=== PATIENT | female | born 1935 | race Caucasian/White ===

== ENCOUNTER 2018-11-10 00:36 | Inpatient (IN) | payer MEDICARE, BC ==
[2018-11-10] MEDS ORDERED: hydrALAZINE 20 MG/ML VIAL ONE (01:19)
[2018-11-10] MEDS ORDERED: Acetaminophen 325 MG TAB ONE (01:19)
[2018-11-10] MEDS ORDERED: Ibuprofen 200 MG TAB ONE (01:19)
[2018-11-10 01:38] LABS: Hemoglobin 15.9 g/dL (12.0-16.0); Mean Corpuscular HGB CONC 32.9 g/dL (32.0-36.0); Mean Corpuscular Hemoglobin 29.7 pg (27.0-31.0); Mean Corpuscular Volume 90.2 fL (78.0-98.0); Mean Platelet Volume 8.3 fL (7.4-10.4); Platelet Count 245 thou/uL (130-400); RBC Distribution Width 11.8 % (11.5-14.5); Red Blood Cell (RBC) Count 5.35 mill/uL (4.20-5.40); White Blood Cell (WBC) Count 11.8 thou/uL (4.8-10.8)
[2018-11-10 01:54] LABS: Band 16 % (5-11); Lymphocytes 3 % (21-51); MDiff Complete? YES; Monocytes 6 % (0-10); Neutrophil 75 % (42-75); Platelet Morphology Comment Appears Adequate; RBC Morphology Normal
[2018-11-10 01:58] LABS: Bilirubin Negative (Negative); Blood, Urine Negative (Negative); Clarity CLEAR (Clear); Glucose, Urine (Dipstick) 250 mg/dL (Negative); Leukocyte Negative (Negative); Nitrite Negative (Negative); Protein, Urine (Dipstick) Negative (Neg-Trace); Specific Gravity, Urine 1.016 (1.002-1.036)
[2018-11-10 02:01] LABS: ALT (SGPT) 187 U/L (8-55); AST (SGOT) 218 U/L (5-34); Albumin 3.9 g/dL (3.4-4.8); Alkaline Phosphatase 189 U/L (40-150); Anion Gap 17 mmol/L (10-20); BUN (Urea Nitrogen) 14 mg/dL (9.8-20.1); Bilirubin, Total 0.9 mg/dL (0.2-1.2); CK (CPK) 53 U/L (29-168); Calc. Creatinine Clearance 0 mL/min (70-130); Calcium 9.6 mg/dL (7.8-10.44); Carbon Dioxide 19 mmol/L (23-31); Chloride 106 mmol/L (98-107); Estimated GFR-MDRD 51; Globulin 3.3 g/dL (2.4-3.5); Glucose 216 mg/dL (83-110); Lipase 32 U/L (8-78); Potassium 3.5 mmol/L (3.5-5.1); Protein, Total 7.2 g/dL (6.0-8.3); Sodium 138 mmol/L (136-145)
[2018-11-10 02:20] LABS: CKMB 1.2 ng/mL (0-6.6)
[2018-11-10] MEDS ORDERED: Aspirin Chewable 81 MG TAB ONE (02:29)
[2018-11-10] MEDS ORDERED: Sodium Chloride 0.9% 1,000 ML IV SCH (03:55)
[2018-11-10 05:42] LABS: Lactic Acid 2.2 mmol/L (0.5-2.2)
[2018-11-10] MEDS ORDERED: Sodium Chloride 0.65% Nasal 44 ML BOT EA NARE PRN (07:45)
[2018-11-10] MEDS ORDERED: Eucerin (Mineral Oil/Petrolatum,White) 30 gm Jar TOP PRN (07:45)
[2018-11-10] MEDS ORDERED: Bisacodyl 10 MG SUPP PR PRN (07:45)
[2018-11-10] MEDS ORDERED: Artificial Tears 18 DROP/0.9 ML EA EYE PRN (07:45)
[2018-11-10] MEDS ORDERED: Loratadine 10 MG TAB PO PRN (07:45)
[2018-11-10] MEDS ORDERED: Senokot S 8.6-50 MG TAB PO PRN (07:45)
[2018-11-10] MEDS ORDERED: Bisacodyl 5 MG TAB PO PRN (07:45)
[2018-11-10] MEDS ORDERED: Diabetic Tussin 200 MG/10 ML UDCUP PO PRN (07:45)
[2018-11-10] MEDS ORDERED: Cepastat Lozenges 1 LOZ PO PRN (07:45)
[2018-11-10] MEDS ORDERED: Acetaminophen 325 MG TAB PO PRN (07:45)
[2018-11-10] MEDS ORDERED: Calcium Carbonate 500 MG ChewTAB PO PRN (07:45)
[2018-11-10] MEDS ORDERED: Metoclopramide HCl 10 MG/2 ML VIAL IVP PRN (07:45)
[2018-11-10] MEDS ORDERED: Zolpidem Tartrate 5 MG TAB PO PRN (07:45)
--- NOTE | 2018-11-10 08:48 | RAD ---
AP CHEST: HISTORY: Fever. FINDINGS: Lungs appear of infiltrate. Vascular markings normal. Heart size upper normal. No evidence of effu kendall. IMPRESSION: No acute lung process. POS: [facility]
[2018-11-10] MEDS ORDERED: Famotidine 20 MG TAB PO SCH (09:00)
[2018-11-10] MEDS ORDERED: Aspirin 325 MG TAB PO SCH (09:00)
[2018-11-10 09:19] LABS: Troponin I 0.124 ng/mL (< 0.028)
[2018-11-10] MEDS ORDERED: Aspirin 325 MG TAB ONE (09:23)
[2018-11-10] MEDS ORDERED: Famotidine 20 MG TAB ONE (09:57)
--- NOTE | 2018-11-10 10:37 | HP ---
PRIMARY CARE PHYSICIAN: [facility]. REASON FOR ADMISSION: Sepsis. HISTORY OF PRESENT ILLNESS: An 82-year-old female, who has underlying history of hypertension and gastroesophageal reflux disease, who came to emergency room with complaint of high-grade fever with chills. The patient was having generalized body ache, headache. She was feeling fatigued. She was feeling very weak, and that is why, she decided to come to emergency room for evaluation. The patient had diarrhea only for 1 day on Tuesday. The patient denies any recent travel. She denies any sick exposure. She denies any rash. She denies any UTI symptoms. She denies any flu-like symptoms. She denies any upper respiratory infection. She denies any constipation, diarrhea, melena, or hematochezia. She denies any pleurisy or pleuritic chest pain or shortness of breath. She does report mild cough. When she arrived to the emergency room, she was having temperature of 101.5. Routine blood test showed leukocytosis with bandemia. She also had lactic acidosis and elevated troponin as well as abnormal LFT. She denies any anorexia. She denies any right upper quadrant pain. She denies any nausea or vomiting. In the emergency room, the patient has received levofloxacin and IV fluid, and subsequently, we decided to keep this patient in the hospital for further evaluation and treatment. PAST MEDICAL HISTORY: 1. Hypertension. 2. Gastroesophageal reflux disease. PAST SURGICAL HISTORY: Reviewed and negative. PAST PSYCHIATRIC HISTORY: Anxiety and depression. ALLERGIES: NO KNOWN DRUG ALLERGIES. CURRENT HOME MEDICATIONS: 1. Toprol-XL 150 mg daily. 2. Venlafaxine 75 mg twice daily. 3. Protonix 40 mg p.o. daily. 4. Isradipine 5 mg daily. 5. Bentyl 10 mg q.8 h. p.r.n. REVIEW OF SYSTEMS: CONSTITUTIONAL: Negative for weight loss or gain, ability to conduct usual activities. SKIN: Negative for rash, itching. EYES: Negative for double vision, pain. ENT/MOUTH: Negative for nose bleeding, neck stiffness, pain, tenderness. CARDIOVASCULAR: Negative for palpitations, dyspnea on exertion, orthopnea. RESPIRATORY: Negative for shortness of breath, wheezing, cough, hemoptysis, fever or night sweats. GASTROINTESTINAL: Negative for poor appetite, abdominal pain, heartburn, nausea, vomiting, constipation, or diarrhea. GENITOURINARY: Negative for urgency, frequency, dysuria, nocturia. MUSCULOSKELETAL: Negative for pain, swelling. NEUROLOGIC/PSYCHIATRIC: Negative for anxiety, depression. ALLERGY/IMMUNOLOGIC: Negative for skin rash, bleeding tendency. Please see my HPI for pertinent positives and negatives. All other review of systems reviewed and negative except as mentioned in HPI. FAMILY HISTORY: The patient lives alone at home. No history of coronary artery disease, stroke, or cancer. SOCIAL HISTORY: The patient lives at home alone. No history of smoking, alcohol, or other illicit drug abuse. EMERGENCY ROOM COURSE: The patient has received Levaquin 750 mg, IV fluid, and Tylenol 650 mg. PHYSICAL EXAMINATION: VITAL SIGNS: On arrival, blood pressure 195/91, pulse 84, respiratory rate 20, temperature 101.5, and saturation 95% on room air. Weight 81.7 kg. GENERAL: The patient is currently alert, awake, in no obvious acute distress. HEAD: Normocephalic and atraumatic. EYES: Pupils round and reactive to light. Extraocular muscles intact. ENT: Oropharynx within normal limits. Moist mucous membranes. No oral lesion. No pharyngeal erythema. No exudate. NECK: Supple. No JVD. No thyromegaly. No carotid bruit. No meningeal signs of irritation. LUNGS: Clear to auscultation. Coarse breath sounds noted, but no rales. No wheeze. CARDIAC: S1 and S2 appear regular. Systolic murmur noted parasternally. No gallop. No rub. ABDOMEN: Obesity present. Bowel sounds present. Nontender and nondistended. No organomegaly. No mass. No suprapubic tenderness. BACK: Unremarkable. No CVA tenderness. EXTREMITIES: Upper extremities; passive movement of all joints are normal. Lower extremities; no edema, good distal pulsation, no calf tenderness. SKIN: No skin rash. HEMATOLOGIC: No lymphadenopathy. PSYCHIATRIC: Normal affect. NEUROLOGIC: Nonfocal examination. SIGNIFICANT LABORATORY DATA: EKG showing normal sinus rhythm. Chest x-ray based on my review, no acute cardiopulmonary process. CBC: WBC 11.8, hemoglobin 15.9, bandemia 16%, and platelets 245. BMP: Sodium 138, potassium 3.5, chloride 106, carbon dioxide 19, anion gap 17, BUN 14, creatinine 1.04, glucose 216, and calcium 9.6. Lactic acid 4.2. LFT: AST 218, ALT 187, alkaline phosphatase 189, and albumin 3.9. CK 53, CK-MB 1.2, troponin 0.104, and BNP 86.9. Lipase 32. Repeat lactic acid 2.2. Urinalysis unremarkable. ASSESSMENT AND PLAN: 1. Sepsis with acute organ dysfunction, associated with lactic acidosis. Source of infection is unclear at this point, suspecting viral prodrome versus bacterial infection. Culture obtained in the emergency room. We will start empiric antibiotic therapy and follow up on culture result, and if the patient does not get fever in next 24 to 48 hours, then we will consider discharging her home on oral antibiotics. We will continue with IV fluid. 2. Lactic acidosis, likely related with sepsis. Repeat lactic acid level is normal. 3. Demand ischemia of myocardium, likely related with demand ischemia from high-grade fever. The patient does not have any chest pain. Her EKG is unremarkable. We will monitor her on telemetry floor and do serial cardiac enzyme as this patient has underlying deep murmur. We will obtain echocardiography to assess ejection fraction and other structural abnormality. 4. Abnormal liver function test. We will repeat hepatitis profile tomorrow and we will also repeat CMP tomorrow, most likely related with sepsis or it could be related with fatty liver. 5. Hyperglycemia. We will check hemoglobin A1c tomorrow, and depending upon that, we will decide about starting diabetes medication. 6. Hypertension. We will hold on blood pressure medication at this point because of sepsis. If blood pressure permits, then we will continue after verifying her home medication. 7. Gastroesophageal reflux disease. We will continue Protonix 40 mg p.o. daily. 8. Code status. The patient is full code. The patient does not have any surrogate decision maker. 9. Disposition plan, based on clinical course. 10. Deep venous thrombosis prophylaxis. Lovenox 40 mg subcutaneous daily. Plan of care discussed with the patient in detail. Job ID: [id number]
[2018-11-10 14:02] VITALS: BMI 29.9
[2018-11-10] MEDS: Aspirin 325 MG TAB PO SCH (14:47)
[2018-11-10] MEDS: Sodium Chloride 0.9% 1,000 ML IV SCH ×2 (14:47→17:26)
[2018-11-10] MEDS: cefTRIAXone\\ROCEPHIN 1 GM in Sodium Chloride 0.9% 100 ML IVPB SCH (14:47)
[2018-11-10] MEDS: Enoxaparin Sodium 40 MG/0.4 ML SYRINGE SC SCH (14:48)
[2018-11-10] MEDS: Saccharomyces boulardii 250 MG CAP PO SCH (14:48)
[2018-11-10] MEDS: hydrALAZINE 20 MG/ML VIAL SLOW IVP PRN (17:35)
[2018-11-10] MEDS: HYDROcodone/Acetaminophen 5/325 mg Tablet PO PRN (17:37)
[2018-11-11] MEDS: Sodium Chloride 0.9% 1,000 ML IV SCH (04:32)
[2018-11-11 05:49] LABS: #Eosinphils 0.2 thou/uL (0.0-0.7); #Lymphocytes 1.2 thou/uL (1.20-3.40); #Monocytes 0.8 thou/uL (0.11-0.59); %Basophils 0.2 % (0.0-1.0); %Eosinophils 2.4 % (0.0-10.0); %Lymphocytes 11.5 % (21.0-51.0); %Monocytes 7.6 % (0.0-10.0); %Neutrophils 78.2 % (42.0-75.0); Hemoglobin 14.6 g/dL (12.0-16.0); Mean Corpuscular HGB CONC 32.5 g/dL (32.0-36.0); Mean Corpuscular Hemoglobin 29.3 pg (27.0-31.0); Mean Corpuscular Volume 90.1 fL (78.0-98.0); Platelet Count 239 thou/uL (130-400); RBC Distribution Width 11.8 % (11.5-14.5); Red Blood Cell (RBC) Count 4.97 mill/uL (4.20-5.40); White Blood Cell (WBC) Count 10.2 thou/uL (4.8-10.8)
[2018-11-11 05:54] LABS: Hemoglobin A1c 5.7 % (4.0-6.0)
[2018-11-11 06:10] LABS: ALT (SGPT) 163 U/L (8-55); AST (SGOT) 91 U/L (5-34); Albumin 3.3 g/dL (3.4-4.8); Alkaline Phosphatase 155 U/L (40-150); Anion Gap 11 mmol/L (10-20); BUN (Urea Nitrogen) 9 mg/dL (9.8-20.1); Calc. Creatinine Clearance 66 mL/min (70-130); Calcium 8.9 mg/dL (7.8-10.44); Carbon Dioxide 21 mmol/L (23-31); Chloride 110 mmol/L (98-107); Estimated GFR-MDRD 63; Globulin 3.2 g/dL (2.4-3.5); Glucose 115 mg/dL (83-110); Potassium 3.6 mmol/L (3.5-5.1); Protein, Total 6.5 g/dL (6.0-8.3); Sodium 138 mmol/L (136-145)
[2018-11-11 06:30] LABS: HBCM Index 0.08 S/CO (0-0.79); HBSAg Index 0.39 S/CO (0-0.99); Hep A IgM AB Non-Reactive (NonReactive); Hep A IgM S/CO 0.32 S/CO (0-0.79); Hep B Surf Ag Non-Reactive S/CO (NonReactive); Hep C IgG Ab Non-Reactive (NonReactive); Hep C Index 0.12 S/CO (0-0.79); Hepatitis B Core IgM Abs Non-Reactive (NonReactive)
[2018-11-11] MEDS: Aspirin 325 MG TAB PO SCH (08:04)
[2018-11-11] MEDS: cefTRIAXone\\ROCEPHIN 1 GM in Sodium Chloride 0.9% 100 ML IVPB SCH (08:04)
[2018-11-11] MEDS: Enoxaparin Sodium 40 MG/0.4 ML SYRINGE SC SCH (08:05)
[2018-11-11] MEDS: Saccharomyces boulardii 250 MG CAP PO SCH (08:05)
[2018-11-11] MEDS: HYDROcodone/Acetaminophen 5/325 mg Tablet PO PRN ×2 (08:11→20:55)
--- NOTE | 2018-11-11 10:45 | PDOC.PN ---
- Subjective Encounter Start Date: 11/11/18 Encounter Start Time: 07:40 Patient seen and examined. No new complaints. No overnight events she feels better, she does not like duoneb, gets tachycardia - Objective Resuscitation Status - Order Detail: 11/10/18 07:42 Resuscitation Status Routine Resuscitation Status: FULL: Full Resuscitation MAR Reviewed: Yes Vital Signs & Weight: Vital Signs (12 hours) Temp Pulse Resp BP Pulse Ox 11/11/18 08:00 96 11/11/18 07:59 99.1 F 102 H 18 180/79 H 96 11/11/18 07:19 96 11/11/18 07:15 80 18 96 11/11/18 03:18 98.8 F 90 14 174/78 H 96 11/11/18 00:53 89 18 95 Weight Weight 179 lb 12.8 oz I&O: 11/10/18 11/11/18 11/12/18 06:59 06:59 06:59 Output Total 600 Balance -600 Result Diagrams: 11/11/18 05:38 11/11/18 05:38 EKG Reviewed by me: Yes (nsr) Phys Exam - Physical Examination Constitutional: NAD HEENT: PERRLA, moist MMs, sclera anicteric Neck: no JVD, supple Respiratory: no wheezing, no rales, no rhonchi Cardiovascular: RRR, no significant murmur, no rub Gastrointestinal: soft, non-tender, no distention, positive bowel sounds Musculoskeletal: no edema, pulses present Neurological: non-focal, normal sensation, moves all 4 limbs Lymphatic: no nodes Psychiatric: normal affect, A&O x 3 Skin: no rash, normal turgor Dx/Plan (1) UTI (urinary tract infection) Status: Acute (2) Abnormal LFTs Code(s): R94.5 - ABNORMAL RESULTS OF LIVER FUNCTION STUDIES Status: Acute (3) Demand ischemia Code(s): I24.8 - OTHER FORMS OF ACUTE ISCHEMIC HEART DISEASE Status: Acute (4) Lactic acidosis Code(s): E87.2 - ACIDOSIS Status: Acute (5) Sepsis with acute organ dysfunction Code(s): A41.9 - SEPSIS, UNSPECIFIED ORGANISM; R65.20 - SEVERE SEPSIS WITHOUT SEPTIC SHOCK Status: Acute (6) Anxiety and depression Code(s): F41.9 - ANXIETY DISORDER, UNSPECIFIED; F32.9 - MAJOR DEPRESSIVE DISORDER, SINGLE EPISODE, UNSPECIFIED Status: Chronic (7) GERD (gastroesophageal reflux disease) Code(s): K21.9 - GASTRO-ESOPHAGEAL REFLUX DISEASE WITHOUT ESOPHAGITIS Status: Chronic (8) Hypertension Code(s): I10 - ESSENTIAL (PRIMARY) HYPERTENSION Status: Chronic - Plan cont current plan of care, continue antibiotics * DC Levaquin * DC IVF * DC tele * DC duoneb * transfer to medical * ambulate as tolerated * continue rocephin * expecting discharge soon * medication reviewed as below * symptomatic treatment. Review of Systems - Review of Systems ENT: negative: Ear Pain, Ear Discharge, Nose Pain, Nose Discharge, Nose Congestion, Mouth Pain, Mouth Swelling, Throat Pain, Throat Swelling, Other Respiratory: negative: Cough, Dry, Shortness of Breath, Hemoptysis, SOB with Excertion, Pleuritic Pain, Sputum, Wheezing Cardiovascular: negative: chest pain, palpitations, orthopnea, paroxysmal nocturnal dyspnea, edema, light headedness, other Gastrointestinal: negative: Nausea, Vomiting, Abdominal Pain, Diarrhea, Constipation, Melena, Hematochezia, Other Genitourinary: negative: Dysuria, Frequency, Incontinence, Hematuria, Retention , Other Musculoskeletal: negative: Neck Pain, Shoulder Pain, Arm Pain, Back Pain, Hand Pain, Leg Pain, Foot Pain, Other Skin: negative: Rash, Lesions, Conner, Bruising, Other - Medications/Allergies Allergies/Adverse Reactions: Allergies Allergy/AdvReac Type Severity Reaction Status Date / Time No Known Drug Allergies Allergy Verified 11/10/18 16:28 Medications: Current Medications Acetaminophen (Tylenol) 650 mg PO Q4H PRN PRN Reason: Headache/Fever/Mild Pain (1-3) Hydrocodone Bitart/Acetaminophen ([place] 5/325) 1 tab PO Q4H PRN PRN Reason: Moderate Pain (4-6) Last Admin: 11/11/18 08:11 Dose: 1 tab Albuterol/Ipratropium (Duoneb) 3 ml NEB [id number] PRN PRN Reason: SOB &/or Wheezing Artificial Tears (Tears Naturale) 2 drop EA EYE PRN PRN PRN Reason: Dry Eyes Aspirin (Aspirin) 325 mg PO DAILY [facility] Last Admin: 11/11/18 08:04 Dose: 325 mg Bisacodyl (Dulcolax) 10 mg PO DAILYPRN PRN PRN Reason: Constipation Bisacodyl (Dulcolax) 10 mg [place] DAILYPRN PRN PRN Reason: Constipation Calcium Carbonate (Tums) 1,000 mg PO Q4H PRN PRN Reason: Heartburn or Indigestion Cholecalciferol (Vitamin D3) 1,000 units PO [facility] Enoxaparin Sodium (Lovenox) 40 mg SC 0900 [facility] Last Admin: 11/11/18 08:05 Dose: 40 mg Guaifenesin (Robitussin Sf) 200 mg PO Q4H PRN PRN Reason: Cough Hydralazine HCl (Apresoline) 10 mg SLOW IVP Q4H PRN PRN Reason: SBP > 180 and HR < 70 Last Admin: 11/10/18 17:35 Dose: 10 mg Ceftriaxone Sodium 1 gm/ (Sodium Chloride) 100 mls @ 200 mls/hr IVPB Q24HR [facility] Last Admin: 11/11/18 08:04 Dose: 100 mls Loratadine (Claritin) 10 mg PO DAILYPRN PRN PRN Reason: Sinus Symptoms Last Admin: 11/10/18 19:50 Dose: 10 mg Metoclopramide HCl (Reglan) 5 mg IVP Q4H PRN PRN Reason: Nausea Metoprolol Succinate (Toprol Xl) 100 mg PO DAILY [facility] Last Admin: 11/11/18 08:41 Dose: 100 mg Mineral Oil/White Petrolatum (Eucerin Cream) 0 gm TOP BIDPRN PRN PRN Reason: Dry Skin Pantoprazole Sodium (Protonix) 40 mg PO DAILY [facility] Last Admin: 11/11/18 08:04 Dose: 40 mg Saccharomyces Boulardii (Florastor) 250 mg PO DAILY [facility] Last Admin: 11/11/18 08:05 Dose: 250 mg Senna/Docusate Sodium (Senokot S) 2 tab PO BID PRN PRN Reason: Constipation Sodium Chloride ([place] Nasal [place] 0.65%) 0 ml EA NARE QIDPRN PRN PRN Reason: Nasal Congestion Last Admin: 11/10/18 20:03 Dose: 1 applic Sodium Chloride (Flush - Normal Saline) 10 ml IVF Q12HR [facility] Last Admin: 11/11/18 08:06 Dose: Not Given Sodium Chloride (Flush - Normal Saline) 10 ml IVF PRN PRN PRN Reason: Saline Flush Throat Lozenges (Cepastat Lozenges) 1 pedro PO Q2H PRN PRN Reason: Sore Throat Venlafaxine HCl (Effexor) 150 mg PO DAILY [facility] Last Admin: 11/11/18 08:41 Dose: 150 mg Zolpidem Tartrate (Ambien) 5 mg PO HSPRN PRN PRN Reason: Insomnia
[2018-11-11] MEDS: hydrALAZINE 20 MG/ML VIAL SLOW IVP PRN (20:57)
[2018-11-12 08:06] LABS: ALT (SGPT) 112 U/L (8-55); AST (SGOT) 41 U/L (5-34); Albumin 3.2 g/dL (3.4-4.8); Alkaline Phosphatase 143 U/L (40-150); Anion Gap 10 mmol/L (10-20); BUN (Urea Nitrogen) 13 mg/dL (9.8-20.1); Bilirubin, Total 0.4 mg/dL (0.2-1.2); Calc. Creatinine Clearance 58 mL/min (70-130); Calcium 9.5 mg/dL (7.8-10.44); Carbon Dioxide 26 mmol/L (23-31); Chloride 110 mmol/L (98-107); Estimated GFR-MDRD 53; Globulin 3.4 g/dL (2.4-3.5); Glucose 111 mg/dL (83-110); Potassium 4.1 mmol/L (3.5-5.1); Protein, Total 6.6 g/dL (6.0-8.3); Sodium 142 mmol/L (136-145)
[2018-11-12] MEDS: Enoxaparin Sodium 40 MG/0.4 ML SYRINGE SC SCH (09:09)
[2018-11-12] MEDS: Aspirin 325 MG TAB PO SCH (09:09)
[2018-11-12] MEDS: cefTRIAXone\\ROCEPHIN 1 GM in Sodium Chloride 0.9% 100 ML IVPB SCH (09:09)
[2018-11-12] MEDS: Saccharomyces boulardii 250 MG CAP PO SCH (10:30)
--- NOTE | 2018-11-12 11:52 | PDOC.PN ---
- Subjective Encounter Start Date: 11/12/18 Encounter Start Time: 08:15 Patient seen and examined. No new complaints. No overnight events overall feels better and improving - Objective Resuscitation Status - Order Detail: 11/10/18 07:42 Resuscitation Status Routine Resuscitation Status: FULL: Full Resuscitation MAR Reviewed: Yes Vital Signs & Weight: Vital Signs (12 hours) Temp Pulse Resp BP BP Pulse Ox 11/12/18 08:22 97.7 F 54 L 18 165/75 H 96 11/12/18 05:45 98.2 F 56 L 20 134/71 93 L 11/12/18 00:35 98.5 F 64 16 160/76 H 94 L Weight Weight 179 lb 12.8 oz I&O: 11/11/18 11/12/18 11/13/18 06:59 06:59 06:59 Intake Total 1680 Output Total 600 1100 Balance -600 580 Result Diagrams: 11/11/18 05:38 11/12/18 07:17 Phys Exam - Physical Examination Constitutional: NAD HEENT: PERRLA, moist MMs, sclera anicteric Neck: no JVD, supple Respiratory: no wheezing, no rales, no rhonchi Cardiovascular: RRR, no significant murmur, no rub Gastrointestinal: soft, non-tender, no distention, positive bowel sounds Musculoskeletal: no edema, pulses present Neurological: non-focal, normal sensation, moves all 4 limbs Lymphatic: no nodes Psychiatric: normal affect, A&O x 3 Skin: no rash, normal turgor Dx/Plan (1) UTI (urinary tract infection) Status: Acute (2) Abnormal LFTs Code(s): R94.5 - ABNORMAL RESULTS OF LIVER FUNCTION STUDIES Status: Acute (3) Demand ischemia Code(s): I24.8 - OTHER FORMS OF ACUTE ISCHEMIC HEART DISEASE Status: Acute (4) Lactic acidosis Code(s): E87.2 - ACIDOSIS Status: Acute (5) Sepsis with acute organ dysfunction Code(s): A41.9 - SEPSIS, UNSPECIFIED ORGANISM; R65.20 - SEVERE SEPSIS WITHOUT SEPTIC SHOCK Status: Acute (6) Anxiety and depression Code(s): F41.9 - ANXIETY DISORDER, UNSPECIFIED; F32.9 - MAJOR DEPRESSIVE DISORDER, SINGLE EPISODE, UNSPECIFIED Status: Chronic (7) GERD (gastroesophageal reflux disease) Code(s): K21.9 - GASTRO-ESOPHAGEAL REFLUX DISEASE WITHOUT ESOPHAGITIS Status: Chronic (8) Hypertension Code(s): I10 - ESSENTIAL (PRIMARY) HYPERTENSION Status: Chronic - Plan cont current plan of care, continue antibiotics * continue rocephin for now * on discharge will give omnicef * medication reviewed as below * symptomatic treatment. Review of Systems - Review of Systems ENT: negative: Ear Pain, Ear Discharge, Nose Pain, Nose Discharge, Nose Congestion, Mouth Pain, Mouth Swelling, Throat Pain, Throat Swelling, Other Respiratory: negative: Cough, Dry, Shortness of Breath, Hemoptysis, SOB with Excertion, Pleuritic Pain, Sputum, Wheezing Cardiovascular: negative: chest pain, palpitations, orthopnea, paroxysmal nocturnal dyspnea, edema, light headedness, other Gastrointestinal: negative: Nausea, Vomiting, Abdominal Pain, Diarrhea, Constipation, Melena, Hematochezia, Other Genitourinary: negative: Dysuria, Frequency, Incontinence, Hematuria, Retention , Other Musculoskeletal: negative: Neck Pain, Shoulder Pain, Arm Pain, Back Pain, Hand Pain, Leg Pain, Foot Pain, Other Skin: negative: Rash, Lesions, Conner, Bruising, Other - Medications/Allergies Allergies/Adverse Reactions: Allergies Allergy/AdvReac Type Severity Reaction Status Date / Time No Known Drug Allergies Allergy Verified 11/10/18 16:28 Medications: Current Medications Acetaminophen (Tylenol) 650 mg PO Q4H PRN PRN Reason: Headache/Fever/Mild Pain (1-3) Hydrocodone Bitart/Acetaminophen ([place] 5/325) 1 tab PO Q4H PRN PRN Reason: Moderate Pain (4-6) Last Admin: 11/11/18 20:55 Dose: 1 tab Albuterol/Ipratropium (Duoneb) 3 ml NEB [id number] PRN PRN Reason: SOB &/or Wheezing Artificial Tears (Tears Naturale) 2 drop EA EYE PRN PRN PRN Reason: Dry Eyes Aspirin (Aspirin) 325 mg PO DAILY [facility] Last Admin: 11/12/18 09:09 Dose: 325 mg Bisacodyl (Dulcolax) 10 mg PO DAILYPRN PRN PRN Reason: Constipation Bisacodyl (Dulcolax) 10 mg [place] DAILYPRN PRN PRN Reason: Constipation Calcium Carbonate (Tums) 1,000 mg PO Q4H PRN PRN Reason: Heartburn or Indigestion Cholecalciferol (Vitamin D3) 1,000 units PO HS [facility] Last Admin: 11/11/18 20:47 Dose: 1,000 units Enoxaparin Sodium (Lovenox) 40 mg SC 0900 [facility] Last Admin: 11/12/18 09:09 Dose: 40 mg Guaifenesin (Robitussin Sf) 200 mg PO Q4H PRN PRN Reason: Cough Hydralazine HCl (Apresoline) 10 mg SLOW IVP Q4H PRN PRN Reason: SBP > 180 and HR < 70 Last Admin: 11/11/18 20:57 Dose: 10 mg Ceftriaxone Sodium 1 gm/ (Sodium Chloride) 100 mls @ 200 mls/hr IVPB Q24HR [facility] Last Admin: 11/12/18 09:09 Dose: 100 mls Loratadine (Claritin) 10 mg PO DAILYPRN PRN PRN Reason: Sinus Symptoms Last Admin: 11/10/18 19:50 Dose: 10 mg Metoclopramide HCl (Reglan) 5 mg IVP Q4H PRN PRN Reason: Nausea Metoprolol Succinate (Toprol Xl) 100 mg PO DAILY [facility] Last Admin: 11/12/18 10:31 Dose: 100 mg Mineral Oil/White Petrolatum (Eucerin Cream) 0 gm TOP BIDPRN PRN PRN Reason: Dry Skin Pantoprazole Sodium (Protonix) 40 mg PO DAILY [facility] Last Admin: 11/12/18 09:09 Dose: 40 mg Saccharomyces Boulardii (Florastor) 250 mg PO DAILY [facility] Last Admin: 11/12/18 10:30 Dose: 250 mg Senna/Docusate Sodium (Senokot S) 2 tab PO BID PRN PRN Reason: Constipation Sodium Chloride ([place] Nasal [place] 0.65%) 0 ml EA NARE QIDPRN PRN PRN Reason: Nasal Congestion Last Admin: 11/10/18 20:03 Dose: 1 applic Sodium Chloride (Flush - Normal Saline) 10 ml IVF Q12HR [facility] Last Admin: 11/12/18 09:09 Dose: 10 ml Sodium Chloride (Flush - Normal Saline) 10 ml IVF PRN PRN PRN Reason: Saline Flush Throat Lozenges (Cepastat Lozenges) 1 pedro PO Q2H PRN PRN Reason: Sore Throat Venlafaxine HCl (Effexor) 150 mg PO DAILY [facility] Last Admin: 11/12/18 10:31 Dose: 150 mg Zolpidem Tartrate (Ambien) 5 mg PO HSPRN PRN PRN Reason: Insomnia
[2018-11-12] MEDS: hydrALAZINE 20 MG/ML VIAL SLOW IVP PRN (17:41)
[2018-11-13] MEDS: Enoxaparin Sodium 40 MG/0.4 ML SYRINGE SC SCH (09:52)
[2018-11-13] MEDS: Aspirin 325 MG TAB PO SCH (09:52)
[2018-11-13] MEDS: cefTRIAXone\\ROCEPHIN 1 GM in Sodium Chloride 0.9% 100 ML IVPB SCH (10:07)
[2018-11-13] MEDS: Saccharomyces boulardii 250 MG CAP PO SCH (10:32)
--- NOTE | 2018-11-13 11:27 | DIS ---
DATE OF ADMISSION: 11/10/2018 DATE OF DISCHARGE: 11/13/2018 PRIMARY CARE PHYSICIAN: [facility] Call admission. DISCHARGE DISPOSITION: Home with home health. PRIMARY DISCHARGE DIAGNOSES: 1. Sepsis with acute organ dysfunction. 2. Lactic acidosis. 3. Demand ischemia. 4. Abnormal LFT. 5. Urinary tract infection. SECONDARY DISCHARGE DIAGNOSES: Hypertension, gastroesophageal reflux disease, anxiety, and depression. PRIMARY PROCEDURE/OPERATION: None. RADIOLOGICAL INVESTIGATION: Chest x-ray normal. Echocardiography showed normal EF. SIGNIFICANT LABORATORY DATA: WBC 10.2, hemoglobin 14.6, and platelet 239. Sodium 142, potassium 4.1, BUN 13, creatinine 1.0, calcium 9.5, AST 41, ALT 112, alkaline phosphatase 143, and albumin 3.2. Troponin 0.124. Hepatitis profile negative. Urinalysis unremarkable. Urine culture grew E. coli. Blood culture negative. Influenza negative. DISCHARGE MEDICATION: 1. Omnicef 300 mg p.o. b.i.d. for 5 more days. 2. Florastor 250 mg p.o. daily for 5 days. 3. Aspirin 81 mg daily. 4. Vitamin D3 of 2000 units p.o. at bedtime. 5. Bentyl 10 mg p.r.n. basis. 6. Vascepa 2 tablets p.o. b.i.d. 7. Isradipine 5 mg p.o. at bedtime. 8. Toprol-XL 100 mg p.o. daily. 9. Protonix 40 mg p.o. at bedtime. 10. Effexor 150 mg p.o. daily. CONTRAINDICATION: None. CODE STATUS: Full code. INPATIENT AIRPORT BAGGAGE SCREENER: None. ALLERGIES: NO KNOWN DRUG ALLERGIES. DISCHARGE PLAN: Posthospital, the patient will follow up with primary care physician in 1 or 2 weeks. HOSPITAL COURSE: An 82-year-old female, who was admitted by me. Please see my HPI for further details. The patient was having generalized weakness. She was having sepsis. Initially, source of infection was unclear, but her urinalysis and urine culture grew E. coli. The patient also had a fever with chills and lactic acidosis, abnormal LFT on admission. We checked hepatitis profile that was normal. Her chest x-ray was normal. She had elevated troponin due to demand ischemia and we did echocardiography that was also normal. While in the hospital, we treated her with Rocephin with significant improvement. Upon discharge, we changed to Omnicef for few more days. The patient will continue all her previous medication while in hospital. She remained hemodynamically stable. Initially, we admitted her to telemetry floor, but subsequently we transferred her to medical floor. At medical floor, the patient is doing very well. She is doing well with therapy. She is requesting home health upon discharge and that is why with help of nurse outreach case manager, we are arranging home health upon discharge. The patient is seen and examined at bedside today. All review of systems reviewed with her negative. Her vitals are stable. Her physical examination has not changed. Overall, she is doing very well. She is okay to be discharged. All new medication prescription sent to her pharmacy. Job ID: [id number]
[2018-11-13 11:39] VITALS: BP 176/77; TEMP 97.6
== END 2018-11-13 12:40 | disposition home health service (06) | DRG 872 ==
LOC: ERS 00:36 → ERHOLD 02:34 → 2NO 14:23 → 3SE 11-11 12:06
PROVIDERS: ADMIT Internal Medicine; ATTEND Internal Medicine
DX: A41.51 Sepsis due to Escherichia coli [E. coli] (principal); E87.2 Acidosis; I24.8 Other forms of acute ischemic heart disease; N39.0 Urinary tract infection, site not specified; R79.89 Other specified abnormal findings of blood chemistry; R65.20 Severe sepsis without septic shock; I10 Essential (primary) hypertension; K21.9 Gastro-esophageal reflux disease without esophagitis; F41.9 Anxiety disorder, unspecified; F32.9 Major depressive disorder, single episode, unspecified; Z79.899 Other long term (current) drug therapy
CPT/HCPCS: 36415; 71045; 80053; 80074; 81003; 82550; 82553; 83036; 83605; 83690; 83880; 84484; 85025; 87040; 87077; 87086; 87186; 87804; 93005; 93306; 94640; A4353; J0360; J0696; J1650; J1956; J7050; J7620

== ENCOUNTER 2019-04-20 21:45 | Emergency (ER) | payer MEDICARE, BC ==
[2019-04-20 22:40] LABS: #Basophils 0.1 thou/uL (0.0-0.2); #Eosinphils 0.5 thou/uL (0.0-0.7); #Lymphocytes 2.6 thou/uL (1.20-3.40); #Monocytes 1.1 thou/uL (0.11-0.59); #Neutrophils 6.2 thou/uL (1.40-6.50); %Basophils 0.6 % (0.0-1.0); %Eosinophils 5.1 % (0.0-10.0); %Lymphocytes 24.9 % (21.0-51.0); %Monocytes 10.1 % (0.0-10.0); %Neutrophils 59.4 % (42.0-75.0); Mean Corpuscular HGB CONC 33.1 g/dL (32.0-36.0); Mean Corpuscular Hemoglobin 30.3 pg (27.0-31.0); Mean Corpuscular Volume 91.6 fL (78.0-98.0); Platelet Count 322 thou/uL (130-400); RBC Distribution Width 12.4 % (11.5-14.5); Red Blood Cell (RBC) Count 4.93 mill/uL (4.20-5.40); White Blood Cell (WBC) Count 10.4 thou/uL (4.8-10.8)
--- NOTE | 2019-04-20 23:04 | CT ---
Exam: Head CT without contrast HISTORY: Altered mental status. COMPARISON: none FINDINGS: Hemorrhage: No intraparenchymal hemorrhage or extra-axial hematoma. Brain parenchyma: Cortical uribe-white matter differentiation is preserved. No mass effect or midline shift. Basilar cisterns are patent.Minimal chronic small vessel ischemic changes of the periventricular white matter. Ventricular system: Ventricles and sulci are patent and symmetric. Calvarium: Intact. Note is made of hyperostosis frontalis interna. Sinuses and mastoid air cells: Adequate aeration. IMPRESSION: No acute intracranial process.
[2019-04-20 23:05] LABS: ALT (SGPT) 28 U/L (8-55); AST (SGOT) 28 U/L (5-34); Albumin 3.8 g/dL (3.4-4.8); Alkaline Phosphatase 102 U/L (40-150); Anion Gap 16 mmol/L (10-20); BUN (Urea Nitrogen) 13 mg/dL (9.8-20.1); Bilirubin, Total 0.3 mg/dL (0.2-1.2); CK (CPK) 262 U/L (29-168); Calc. Creatinine Clearance 0 mL/min (70-130); Calcium 8.7 mg/dL (7.8-10.44); Carbon Dioxide 15 mmol/L (23-31); Chloride 113 mmol/L (98-107); Estimated GFR-MDRD 46; Globulin 3.1 g/dL (2.4-3.5); Glucose 134 mg/dL (83-110); Potassium 4.4 mmol/L (3.5-5.1); Protein, Total 6.9 g/dL (6.0-8.3); Sodium 140 mmol/L (136-145)
[2019-04-20 23:40] LABS: Bacteria/HPF 1+ HPF (None Seen); Bilirubin Negative (Negative); Blood, Urine Negative (Negative); Clarity Clear (Clear); Glucose, Urine (Dipstick) Normal (Negative); Leukocyte 25 Leu/uL (Negative); Nitrite Negative (Negative); Protein, Urine (Dipstick) Negative (Neg-Trace); RBC/HPF 0-3 HPF (0-3); Squamous Epithelial 0-3 HPF (0-3); Urobilinogen Normal mg/dL (Less than 2); WBC/HPF 0-3 HPF (0-3)
== END 2019-04-21 00:42 | disposition home or self-care (01) ==
LOC: ERS 21:45
DX: G45.4 Transient global amnesia (principal); I10 Essential (primary) hypertension; K21.9 Gastro-esophageal reflux disease without esophagitis; F32.9 Major depressive disorder, single episode, unspecified; Z79.899 Other long term (current) drug therapy
CPT/HCPCS: 36415; 70450; 80053; 81003; 81015; 82550; 84484; 85025; 87040; 87086; 93005; 94760; 96360

== ENCOUNTER 2019-04-21 14:33 | Inpatient (IN) | payer MEDICARE, BC ==
[2019-04-21 15:30] LABS: #Eosinphils 0.5 thou/uL (0.0-0.7); #Lymphocytes 3.3 thou/uL (1.20-3.40); #Monocytes 0.7 thou/uL (0.11-0.59); %Basophils 0.4 % (0.0-1.0); %Eosinophils 5.2 % (0.0-10.0); %Lymphocytes 34.1 % (21.0-51.0); %Monocytes 7.5 % (0.0-10.0); %Neutrophils 52.8 % (42.0-75.0); Hemoglobin 15.2 g/dL (12.0-16.0); Mean Corpuscular HGB CONC 34.1 g/dL (32.0-36.0); Mean Corpuscular Hemoglobin 30.4 pg (27.0-31.0); Mean Corpuscular Volume 89.3 fL (78.0-98.0); Mean Platelet Volume 8.5 fL (7.4-10.4); Platelet Count 369 thou/uL (130-400); RBC Distribution Width 12.3 % (11.5-14.5); Red Blood Cell (RBC) Count 4.99 mill/uL (4.20-5.40); White Blood Cell (WBC) Count 9.5 thou/uL (4.8-10.8)
--- NOTE | 2019-04-21 15:36 | CT ---
CT brain noncontrast: DATE: 04/21/2019 Time: 3:23 PM HISTORY: 83-year-old female with acute stroke symptoms: Right-sided weakness, dysarthria, and confusion. Dr. Walter verbally gave this acute stroke protocol report to Dr. Young of the emergency Department at 3:31 PM on 04/21/2019 COMPARISON: 04/20/2019 FINDINGS: There is a new finding of a moderate to large region of cytotoxic edema involving the left occipital lobe and contiguously the posterior medial aspect of left temporal lobe (most of the left ASSEMBLY MACHINE OPERATOR territory). There is a small acute focus of cytotoxic edema, representing an acute lacunar infarction , of the left thalamus (thalamic branch territory of the left ASSEMBLY MACHINE OPERATOR). There is no evidence of acute intra-axial or extra-axial hemorrhage. No mass effect, midline shift, extra-axial fluid collection, o r obstructive hydrocephalus. No calvarial fracture. IMPRESSION: 1) moderate to large left occipital acute infarction involving the majority of the left posterior cer ebral artery territory. 2) acute lacunar infarction of left thalamus (branch territory of left posterior cerebral artery)
[2019-04-21 15:45] LABS: PTT 26.8 SEC (22.9-36.1); Prothrombin Time 13.4 SEC (12.0-14.7)
[2019-04-21 15:48] LABS: ALT (SGPT) 24 U/L (8-55); AST (SGOT) 19 U/L (5-34); Alkaline Phosphatase 101 U/L (40-150); Anion Gap 15 mmol/L (10-20); BUN (Urea Nitrogen) 11 mg/dL (9.8-20.1); Bilirubin, Total 0.4 mg/dL (0.2-1.2); CK (CPK) 163 U/L (29-168); Calc. Creatinine Clearance 0 mL/min (70-130); Calcium 9.2 mg/dL (7.8-10.44); Carbon Dioxide 21 mmol/L (23-31); Chloride 110 mmol/L (98-107); Estimated GFR-MDRD 51; Globulin 3.5 g/dL (2.4-3.5); Glucose 141 mg/dL (83-110); Potassium 3.7 mmol/L (3.5-5.1); Protein, Total 7.5 g/dL (6.0-8.3); Sodium 142 mmol/L (136-145)
[2019-04-21] MEDS ORDERED: Aspirin 325 MG TAB ONE (15:55)
[2019-04-21 16:10] LABS: CKMB 2.6 ng/mL (0-6.6)
[2019-04-21] MEDS ORDERED: hydrALAZINE 20 MG/ML VIAL ONE (16:28)
[2019-04-21 19:46] LABS: Troponin I Less than 0.010 ng/mL (< 0.028)
[2019-04-21] MEDS ORDERED: HYDROcodone/Acetaminophen 5/325 mg Tablet PO PRN (19:54)
[2019-04-21] MEDS ORDERED: Senokot S 8.6-50 MG TAB PO PRN (19:54)
[2019-04-21] MEDS ORDERED: Sodium Chloride 0.9% 1,000 ML IV SCH (20:00)
[2019-04-21 20:02] VITALS: BMI 30.1
[2019-04-21] MEDS: Famotidine 20 MG TAB PO SCH (20:23)
[2019-04-21 23:22] LABS: Bacteria/HPF 1+ HPF (None Seen); Bilirubin Negative (Negative); Blood, Urine Negative (Negative); Clarity Clear (Clear); Glucose, Urine (Dipstick) Normal (Negative); Leukocyte Negative Leu/uL (Negative); Nitrite Negative (Negative); Protein, Urine (Dipstick) Negative (Neg-Trace); RBC/HPF 0-3 HPF (0-3); Squamous Epithelial 0-3 HPF (0-3); Urobilinogen Normal mg/dL (Less than 2); WBC/HPF 0-3 HPF (0-3)
[2019-04-21 23:25] LABS: Urine Culture Reflex No No
--- NOTE | 2019-04-22 04:24 | HP ---
PRIMARY CARE PHYSICIAN: Dr. Quintana. CHIEF COMPLAINT: Right-sided weakness and confusion. HISTORY OF PRESENT ILLNESS: Ms. Robert is a very pleasant 83-year-old female who reported to the emergency room today for altered mental status and right-sided weakness. She reports that the right-sided arm weakness and tingling started yesterday. Family also reports that she had some slurred speech and appeared confused. She had recently been diagnosed with UTI on Tuesday and was started on Cipro and has had 3 doses per the family. Family also reports that she has had some intermittent diarrhea for the last 2 weeks, none today. The patient reports that she woke up very early this morning around 6 o'clock, which is very unusual for her. She reports that she typically sleeps at least 9 a.m. and sometimes noon as that she has difficulty sleeping and stays up later, so she sleeps in later, but this morning she got up at 6 and evidently she was slightly disoriented, some confusion, and rather than call her family, which she reports now would have been the right thing to do, she actually went up, left her house, when outside and was attempting to flag some people down for some assistance. The patient had a CT scan while in the emergency room, which showed a new finding of a [id number] region of cytotoxic edema involving the left occipital lobe and contiguously posterior medial aspect of the left temporal lobe, most of the left SOCIAL CONTACT WORKER territory, there is a small acute focus of cytotoxic edema representing an acute lacunar infarction of the left thalamus. There is no evidence of acute intra-axial or extra-axial hemorrhage. There is no mass effect or midline shift. On exam, the patient continues to have some right-sided weakness. Strength, right arm is 4/5, left arm is 5/5. Same with lower extremities, strength is 4/5 on the right side and 5/5 on the left. She does not have any drift. However, her peripheral vision on her right side is absent. Of note, the patient was seen in the emergency room earlier on Tuesday. She was seen to have a facial droop on the right side, partial hemangioma. She was offered opportunity for admission for further workup. The patient declined, stated that she really wanted to go home and that she would follow up with her PCP. Reports that she does already had an appointment scheduled with her speech therapy assistant and GI doctors in the next several weeks. She did have a CT scan of her brain on Tuesday at 2159, which showed no intracranial process, so the findings today are new. The patient agreed to admission and will be admitted to the stroke unit for further management. PAST MEDICAL HISTORY: Hypertension and GERD. PAST SURGICAL HISTORY: She has had back surgery. PSYCHIATRIC HISTORY: None. SOCIAL HISTORY: Denies any alcohol or drug use. Has no smoking history. She does live at home by herself. KNOWN ALLERGIES: None. CURRENT MEDICATIONS: 1. Cipro 500 mg p.o. twice a day. 2. Isradipine 5 mg p.o. b.i.d. 3. Venlafaxine 75 mg once a day, Effexor. REVIEW OF SYSTEMS: The patient reports right-sided weakness. She also reports intermittent diarrhea, none today. Denies any abdominal pain. Denies any chest pain, shortness of breath. Does report vision changes to her right peripheral vision. All other systems were reviewed and are negative unless mentioned in the HPI. PHYSICAL EXAMINATION: VITAL SIGNS: Blood pressure 187/78, pulse is 82, respirations are 19, pO2 sats are 97% on room air. CONSTITUTIONAL: The patient appears nontoxic. She is having expressive aphasia, but she is alert and oriented to person, place, and time. HEENT: Head is atraumatic and normocephalic. Eyes; eyelids are normal to inspection. Pupils are equally round and reactive to light. Peripheral vision on the right is absent, hemangioma. ENT; mouth exam is normal. Mucous membranes were moist. NECK: Normal range of motion. Trachea is midline. RESPIRATORY: Breath sounds are clear. No findings of respiratory distress. CARDIOVASCULAR: Regular heart rate and rhythm. Heart sounds are normal. ABDOMEN: Nontender. Bowel sounds are heard. BACK: Normal inspection. Normal range of motion. EXTREMITIES: Upper extremities; normal range of motion. Sensation intact. Radial pulses are equal bilaterally. She has 4/5 strength on the right upper extremity, 5/5 motor strength on the left. Lower extremities; inspection is normal. Motor strength, 5/5 on the left and 4/5 on the right. Sensation is intact. Pedal pulses are equal bilaterally. NEUROLOGIC: Speech appears to have some expressive aphasia. Minimal drift on the right upper and lower extremities. Some hemangioma on the right. PERTINENT LABORATORY DATA: White blood cell count 9.5, hemoglobin 15.2, hematocrit 44.5, and platelet count is 369. PT is 13.4, INR is 1, APTT is 26.8. Sodium is 142, potassium 3.7, chloride is 110, carbon dioxide is 21, gap is 15, BUN is 11, creatinine is 1.03, GFR is 51, glucose is 141, calcium is 9.2. Liver enzymes are unremarkable. Troponin x1 is 0.030, subsequent 2 troponins are undetectable. Urine, negative except for 1+ bacteria. ASSESSMENT AND PLAN: 1. Acute cerebrovascular accident. We will order an MRI, echocardiogram, carotid Dopplers, stroke team evaluation, lipids, and TSH in the morning. We will ask Case Management to initiate inpatient rehab evaluation. Family states that they may need some help getting her back to baseline and she lives at home by herself. 2. Hyperlipidemia. We will continue the Vascepa. The patient reports being treated for a urinary tract infection that was diagnosed on Tuesday. We will continue the Cipro. She is getting 500 mg p.o. b.i.d. and has 5 doses left. We will continue this. 3. Code status was discussed with the patient and family. Her sons are at the bedside, states that she potentially could be DNR, but is not sure. Family stated they wanted to discuss it before they decided on a code status, and one of the sons wanted to look for paperwork that his mother had signed and had given him in the past. Extensive discussion about the different code status is what they mean and discussion about ensuring that the patient and family were all in agreement as to code status, and if they could let us know with her first opportunity, we will update this in the chart. 4. Gastrointestinal and deep venous thrombosis prophylaxis will be started. 5. We will ask Neurology to consult for acute cerebrovascular accident. 6. Hospital course is dependent on clinical findings. Job ID: [id number]
[2019-04-22 05:39] LABS: #Basophils 0.1 thou/uL (0.0-0.2); #Eosinphils 0.6 thou/uL (0.0-0.7); #Lymphocytes 3.5 thou/uL (1.20-3.40); #Monocytes 0.8 thou/uL (0.11-0.59); #Neutrophils 3.8 thou/uL (1.40-6.50); %Basophils 0.7 % (0.0-1.0); %Eosinophils 6.9 % (0.0-10.0); %Lymphocytes 40.2 % (21.0-51.0); %Monocytes 9.4 % (0.0-10.0); %Neutrophils 42.8 % (42.0-75.0); Hemoglobin 14.2 g/dL (12.0-16.0); Mean Corpuscular HGB CONC 33.1 g/dL (32.0-36.0); Mean Corpuscular Hemoglobin 29.7 pg (27.0-31.0); Mean Corpuscular Volume 89.8 fL (78.0-98.0); Platelet Count 336 thou/uL (130-400); RBC Distribution Width 12.3 % (11.5-14.5); Red Blood Cell (RBC) Count 4.76 mill/uL (4.20-5.40); White Blood Cell (WBC) Count 8.8 thou/uL (4.8-10.8)
[2019-04-22 06:02] LABS: ALT (SGPT) 19 U/L (8-55); AST (SGOT) 15 U/L (5-34); Albumin 3.4 g/dL (3.4-4.8); Alkaline Phosphatase 85 U/L (40-150); Anion Gap 12 mmol/L (10-20); BUN (Urea Nitrogen) 14 mg/dL (9.8-20.1); Bilirubin, Total 0.3 mg/dL (0.2-1.2); Calc. Creatinine Clearance 57 mL/min (70-130); Calcium 8.7 mg/dL (7.8-10.44); Carbon Dioxide 22 mmol/L (23-31); Cardiac Risk 3.8 (Less than 4.5); Chloride 110 mmol/L (98-107); Cholesterol 166 mg/dl (< 200 Desired); Estimated GFR-MDRD 53; Glucose 110 mg/dL (83-110); HDL Cholesterol 44 mg/dL (>60 Neg Risk); LDL Cholesterol, Calculated 88 mg/dL; Potassium 3.6 mmol/L (3.5-5.1); Protein, Total 6.4 g/dL (6.0-8.3); Sodium 140 mmol/L (136-145); Triglycerides 170 mg/dL (Less than 150)
[2019-04-22] MEDS ORDERED: ISRADIPINE 5 MG PO SCH (09:00)
[2019-04-22] MEDS ORDERED: Ciprofloxacin 500 MG TAB PO SCH (09:00)
--- NOTE | 2019-04-22 09:16 | ULT ---
Ultrasound Doppler duplex carotid: DATE: 04/22/2019 HISTORY: Cerebrovascular accident in 83-year-old female Acute stroke. TECHNIQUE: Grayscale, color-flow, and spectral analysis, of major arteries of neck. FINDINGS: Mild calcified atheromatous plaque at origin of right internal carotid. Mild to moderate calcified at heromatous plaque at contralateral left carotid bulb at origin of left internal carotid. Highest peak systolic velocities in centimeters per second in the internal carotids: R ICA: 52 L ICA: 45 ICA/CCA ratios: Right: 0.9 Left: 0.6 Week pulse Doppler and color Doppler signal in the right vertebral artery, probably antegrade. Stronger Doppler signal in left vertebral artery, definitely antegrade. IMPRESSION: 1. Predominantly mild atherosclerosis at origins of bilateral internal carotid arteries, left greater than right. 2. No evidence of hemodynamically significant stenosis in the cervical internal carotid arteries. 3. Weak flow signal in the right vertebral artery.
[2019-04-22] MEDS: Aspirin 325 mg Enteric Coated Tablet PO SCH (09:34)
[2019-04-22] MEDS: Enoxaparin Sodium 40 MG/0.4 ML SYRINGE SC SCH (09:34)
[2019-04-22] MEDS: Famotidine 20 MG TAB PO SCH ×2 (09:34→21:46)
[2019-04-22] MEDS ORDERED: Ondansetron PF 4 MG/2 ML Vial IVP PRN (11:05)
--- NOTE | 2019-04-22 11:15 | CON ---
DATE OF CONSULTATION: 04/22/2019 CHIEF COMPLAINT: Acute stroke. HISTORY OF PRESENT ILLNESS: The patient reports she was not feeling well for the last few weeks due to upset stomach, and she went to see her doctor and she also talked to Dr. Chavez, who wanted to do further testing. He felt that her right hand is weak and not working well. She also reported tingling in the right arm. She is able to walk okay, and these symptoms are worsened and there is no improvement. PREVIOUS MEDICAL HISTORY: Positive for hypertension, gastroesophageal reflux disease. PAST SURGICAL HISTORY: Lower back surgery in the 1970s. SOCIAL HISTORY: Nonsmoker. Drinks wine occasionally. She is very independent and lives at home by herself. RECENT HOSPITALIZATION: She was hospitalized in October for high fever. FAMILY HISTORY: Negative for any acute strokes. REVIEW OF SYSTEMS: PULMONARY: Negative for shortness of breath and cough. GI: Negative for any diarrhea, vomiting, or nausea. GENITOURINARY: Negative for bladder problems. NEUROLOGICAL: Positive for weakness of the right hand and lack of coordination of the right hand. OPHTHALMOLOGIC: Negative. ENT negative. DERMATOLOGIC: Negative for any rash. LABORATORY WORKUP: White count 8.8, hemoglobin 14.2, hematocrit 42.7, platelets 336. Chemistry; sodium 140, potassium 3.6, chloride 110, BUN 14, creatinine 1.01. Triglycerides 170, cholesterol 166, LDL 88, HDL 44. TSH 1.1. IMAGING STUDIES: Her CT of the brain performed yesterday showed moderate to large left occipital lobe acute infarct involving the majority of left posterior cerebral artery territory, and she also completed a carotid Doppler study, which was negative for any major vaso-occlusive disease. She does have mild atherosclerosis at the origins of bilateral ICAs, left greater than the right. MRI is pending. PHYSICAL EXAMINATION: VITAL SIGNS: Temperature 98.3, pulse 68, respiratory rate 16, O2 saturations 95, blood pressure 190/84. GENERAL APPEARANCE: Well-built, well-nourished lady. CHEST: Clear vesicular breathing. CARDIOVASCULAR: S1 and S2 heard. No murmurs. ABDOMEN: Soft. NEUROLOGICAL: Higher intellectual functions, normal orientation to time, place, and person. Appropriate conversation. Cranial nerves; visual christopher, she has right homonymous hemianopsia with deficits of the left nasal field and right temporal field. Normal extraocular movements. Pupils are 2 mm and reactive to light bilaterally. Sensory exam of the face showed decreased sensation of the right face. Tongue midline. No atrophy noted. Normal elevation of palate. Normal hearing. Motor exam; bulk normal, tone normal. Strength 5/5 in both upper and lower extremities in iliopsoas, hamstrings, quadriceps, ankle dorsiflexion, plantar flexion, deltoid, biceps, triceps, wrist extension and flexion, finger extension and flexion. Deep tendon reflexes are 1+ in lower extremities, 2+ in upper extremities. She has mild cerebellar dysfunction in the right upper extremity. Otherwise, cerebellar exam is also normal. IMPRESSION: The patient with the left occipital lobe infarct. She is currently having deficits mainly in the right visual field with right homonymous hemianopsia with left nasal field cut and right temporal field cut. At this time, clinical examination is most consistent with a left occipital lobe infarct. RECOMMENDATIONS: Please complete CT angiogram and echocardiogram and full workup. Agree with aspirin and statin for stroke prophylaxis, and Neurology will follow up as needed. Job ID: [id number]
--- NOTE | 2019-04-22 11:35 | PDOC.PN ---
- Subjective Encounter Start Date: 04/22/19 Encounter Start Time: 11:33 Says she does not feel well at all, but can't be more specific. Has had some vision changes especially in her right eye, but that seems to be improving. Also has some nausea. - Objective Vital Signs & Weight: Vital Signs (12 hours) Temp Pulse Resp BP Pulse Ox 04/22/19 11:32 97.4 F L 60 18 190/81 H 97 04/22/19 07:38 98.3 F 58 L 16 190/84 H 95 04/22/19 04:00 97.6 F 58 L 16 180/83 H 97 04/22/19 00:00 97.9 F 63 16 173/77 H 95 Weight Weight 181 lb 1.6 oz I&O: 04/21/19 04/22/19 04/23/19 06:59 06:59 06:59 Intake Total 1153 240 Output Total 700 Balance 453 240 Result Diagrams: 04/22/19 05:07 04/22/19 05:07 Additional Labs: Accuchecks 04/21/19 14:50 POC Glucose 136 H Phys Exam - Physical Examination Constitutional: NAD Lying in bed with wet cloth over her eyes. Respiratory: no wheezing, no rales, no rhonchi Cardiovascular: RRR, no rub II/ M Gastrointestinal: soft, non-tender, no distention, positive bowel sounds Musculoskeletal: no edema 4/5 strength RU and RL extrems. Normal interaction/cognition. Normal speech. Deviation from normal: Appears to not feel well, but otherwise normal. Dx/Plan (1) CVA (cerebral vascular accident) Code(s): I63.9 - CEREBRAL INFARCTION, UNSPECIFIED Status: Acute Comment: Left occipital, visual field deficits. (2) UTI (urinary tract infection) Status: Acute (3) GERD (gastroesophageal reflux disease) Code(s): K21.9 - GASTRO-ESOPHAGEAL REFLUX DISEASE WITHOUT ESOPHAGITIS Status: Chronic (4) Hypertension Code(s): I10 - ESSENTIAL (PRIMARY) HYPERTENSION Status: Chronic (5) Nausea Code(s): R11.0 - NAUSEA Status: Acute - Plan * Neuro consult appreciated. * Echo pending. Did not tolerate the MRI. * Will consider attempting again when she is less nauseated. * Carotids ok. * CTA pending. * Aspirin, but hold on statin until we can clarify from Dr. Chavez's office why she is on Vascepa and that she does not have an intolerance to statins. * Stroke team. * Permissive hypertension. * Zofran ordered. * D/C Cipro in light of interaction with Zofran. * Rocephin. * Follow up UCx.
--- NOTE | 2019-04-22 12:23 | CT ---
CTA ANGIO HEAD WITH AND WITHOUT CONTRAST CT BRAIN WITHOUT CONTRAST CT ANGIOGRAM NECK WITH CONTRAST: HISTORY: Left RETAIL CUSTOMER SERVICE SPECIALIST infarction. Comparison: CT prior day and CT April 20, 2019. Findings: Continued evolution left RETAIL CUSTOMER SERVICE SPECIALIST territory infarction. Left thalamic infarct is similar. No midline shift. No significant mass effect. Calvarium is intact. Vertebral arteries are patent. The basilar artery is patent. Complete occlusion left P2 posterior cer ebral artery with reconstitution of P4. Anterior cerebral arteries are patent. Middle cerebral arteries are patent. Occlusion occurs for a length of approximately 2.5 cm. No aneurysm formation. IMPRESSION: 1. Long segment occlusion left P2 segment with reconstitution at P4 corresponding to the CT findings. 2. Remainder the [place] is patent. 3. No hemorrhagic conversion of the left thalamic or RETAIL CUSTOMER SERVICE SPECIALIST territory infarction.. Transcribed Date/Time: 04/22/2019 12:53 PM
--- NOTE | 2019-04-22 12:31 | CT ---
CT ANGIOGRAM NECK WITH CONTRAST: DATE: 04/22/2019 HISTORY: 83-year-old female status post CVA, acute left posterior cerebral artery territory infarction. TECHNIQUE: After IV contrast injection, arterial bolus chasing technique scan performed from 2.5 cm inferior to kash to skull base Coronal and sagittal 3-D MIP reconstructions. FINDINGS: Aortic arch: No stenosis, aneurysm, or dissection. Brachiocephalic: No stenosis. Right subclavian: Normal. Left subclavian: No significant stenosis. Mild calcified plaque at origin. Right common carotid: Normal. Left common carotid: Normal. Right internal carotid: Moderate calcified atheromatous plaque at origin at carotid bulb causing appr oximately 50% luminal stenosis. The rest of the cervical are ICA is normal. Left internal carotid: Calcified plaque at origin of left internal carotid at carotid bulb causing mi ld, probably less than 20% stenosis. The distal cervical left internal carotid has mild noncalcified irregularity of eckert, and mild diffu se narrowing, but no focal high-grade stenosis. Right vertebral: Normal. Left vertebral: Dominant. Normal. Several right thyroid nodules. Distention of the supraglottic laryngeal and oropharyngeal airway. Cause is not apparent. Trachea is patent and clear. No laryngeal mass identified.. IMPRESSION: 1) atheromatous plaque at origin of right internal carotid causing moderate stenosis. 2) no other hemodynamically significant stenosis identified in the major arteries of the neck. 3) distention of the supraglottic and oropharyngeal airways. Cause not apparent.
[2019-04-22] MEDS ORDERED: ISOVUE-370 76%-LOCM 1 ML ONE (12:37)
[2019-04-22] MEDS: cefTRIAXone\\ROCEPHIN 1 GM in Sodium Chloride 0.9% 100 ML IVPB SCH (13:08)
[2019-04-23] MEDS ORDERED: hydrALAZINE 20 MG/ML VIAL SLOW IVP PRN (01:38)
[2019-04-23 04:43] LABS: #Basophils 0.1 thou/uL (0.0-0.2); #Eosinphils 0.7 thou/uL (0.0-0.7); #Lymphocytes 3.3 thou/uL (1.20-3.40); #Monocytes 0.7 thou/uL (0.11-0.59); #Neutrophils 4.6 thou/uL (1.40-6.50); %Basophils 1.1 % (0.0-1.0); %Eosinophils 7.4 % (0.0-10.0); %Lymphocytes 34.7 % (21.0-51.0); %Monocytes 7.7 % (0.0-10.0); %Neutrophils 49.1 % (42.0-75.0); Hemoglobin 14.1 g/dL (12.0-16.0); Mean Corpuscular HGB CONC 34.9 g/dL (32.0-36.0); Mean Corpuscular Volume 88.8 fL (78.0-98.0); Mean Platelet Volume 8.2 fL (7.4-10.4); Platelet Count 321 thou/uL (130-400); Red Blood Cell (RBC) Count 4.54 mill/uL (4.20-5.40); White Blood Cell (WBC) Count 9.4 thou/uL (4.8-10.8)
[2019-04-23 05:01] LABS: ALT (SGPT) 18 U/L (8-55); AST (SGOT) 16 U/L (5-34); Albumin 3.7 g/dL (3.4-4.8); Alkaline Phosphatase 85 U/L (40-150); Anion Gap 13 mmol/L (10-20); BUN (Urea Nitrogen) 13 mg/dL (9.8-20.1); Bilirubin, Total 0.5 mg/dL (0.2-1.2); Calc. Creatinine Clearance 67 mL/min (70-130); Calcium 9.1 mg/dL (7.8-10.44); Carbon Dioxide 22 mmol/L (23-31); Chloride 107 mmol/L (98-107); Estimated GFR-MDRD 63; Glucose 103 mg/dL (83-110); Potassium 3.6 mmol/L (3.5-5.1); Protein, Total 6.7 g/dL (6.0-8.3); Sodium 138 mmol/L (136-145)
[2019-04-23] MEDS: cloNIDine 0.1 MG TAB PO PRN (07:46)
[2019-04-23] MEDS: Enoxaparin Sodium 40 MG/0.4 ML SYRINGE SC SCH (09:59)
[2019-04-23] MEDS: Famotidine 20 MG TAB PO SCH (09:59)
[2019-04-23] MEDS: Aspirin 325 mg Enteric Coated Tablet PO SCH (09:59)
[2019-04-23] MEDS: cefTRIAXone\\ROCEPHIN 1 GM in Sodium Chloride 0.9% 100 ML IVPB SCH (12:24)
[2019-04-23] MEDS ORDERED: Senokot 8.6 MG TAB PO PRN (13:33)
[2019-04-23] MEDS ORDERED: ALPRAZolam 0.25 MG TAB PO PRN (13:33)
[2019-04-23] MEDS ORDERED: Saccharomyces boulardii 250 MG CAP PO SCH (13:45)
--- NOTE | 2019-04-23 15:29 | PRG ---
DATE OF SERVICE: 04/23/2019 SUBJECTIVE: An 83-year-old female with hypertension and GERD, presented to the hospital with right-sided weakness along with confusion. Please note that the patient had discontinued taking most of her medications including aspirin at home. She is currently admitted to the Stroke Unit for possible CVA. She was evaluated by Neurology and has been started on aspirin and statins. A CT angiogram of the head and neck were done that showed occlusion of the left P2 segment of the posterior cerebral artery with reconstitution of P4. Anterior cerebral artery and middle cerebral artery were patent. The occlusion occurs for a length of approximately 2.5 cm. The patient denies any new deficits at this time. The right lower extremity strength has significantly improved. She continues to have mild weakness in the right upper extremity. She continues to have blurriness of vision on the right. No chest pain or palpitations reported. REVIEW OF SYSTEMS: All other review of systems were reviewed and were found negative. OBJECTIVE: VITAL SIGNS: Temperature 98.4, pulse rate of 74, respirations of 16, and blood pressure of 192/88 with O2 saturation 95% on room air. GENERAL: An 83-year-old female, in no apparent distress. NECK: Supple. No JVD. No carotid bruit. LUNGS: Clear to auscultation bilaterally. No wheezing, rales, or rhonchi. HEART: S1 and S2 present. Regular rate and rhythm. No rubs or gallops appreciated. ABDOMEN: Soft and nontender. Bowel sounds present. EXTREMITIES: No edema or calf tenderness. NEUROLOGY: There is 4/5 weakness in the right upper extremity. There is diminished sensation on the right. The patient continues to have the same visual deficits. PSYCHIATRY: Normal affect. The patient is alert, awake, and oriented x3. DIAGNOSTIC DATA: Telemetry monitoring by my review showed sinus rhythm. CT angiogram of the head and neck as discussed above. Echocardiogram showed diastolic dysfunction. Fasting lipid profile showed triglyceride 170, cholesterol 166, and LDL 88. TSH was 1.19. Maximum troponin was 0.030. IMPRESSION: 1. Left occipital lobe infarction with right-sided weakness and right homonymous hemianopia. 2. Occlusion of the left P2 segment of posterior cerebral artery with reconstitution of P4. 3. Moderate right internal carotid artery stenosis with mild stenosis of the left internal carotid artery. 4. Hypertension with hypertensive heart disease. 5. Chronic diastolic heart failure. 6. Depression, mild, stable. 7. Anxiety. 8. Recent urinary tract infection, on ciprofloxacin. 9. Hyperlipidemia. 10. Elevated troponin secondary to acute cerebrovascular accident/type 2 myocardial infarction. 11. Obesity with BMI of 30.1. 12. Chronic kidney disease, stage 2. PLAN: MRI of the brain is pending at this time. The patient has significant claustrophobia. Benzodiazepines were offered, however, the patient declined. We will continue IV Rocephin for recent UTI. We will continue aspirin. We will resume Vascepa. We will add statins. Lovenox for DVT prophylaxis. Stroke Team. Please note that the patient does not like taking most of the medications. Antihypertensives were offered, however, the patient declined. We will add low-dose amlodipine due to elevated blood pressure. Plan of care was discussed with the patient in detail, she stated understanding. Job ID: [id number]
--- NOTE | 2019-04-23 19:50 | MRI ---
MRI BRAIN WITHOUT CONTRAST: HISTORY: Right-sided weakness. CORRELATION: CTA head from the previous day. CT brain from 04/21/2019. FINDINGS: There is a large area of restricted diffusion in the left SUPERVISOR WHIPPED TOPPING territory, involving the occipital lobe and the left thalamus. No hemorrhage is seen. No midline shift otherwise abnormal extraaxial fluid collections are noted. The ventricular size is appropriate, and the basilar cisterns are patent. IMPRESSION: Acute large left posterior cerebral artery infarction. POS: [id number]
[2019-04-23] MEDS ORDERED: Atorvastatin Calcium 10 MG TAB PO SCH (21:00)
[2019-04-23] MEDS ORDERED: Amlodipine 5 MG TAB PO SCH (21:00)
[2019-04-23] MEDS: Propranolol 10 MG TAB PO SCH (22:43)
[2019-04-24] MEDS: cloNIDine 0.1 MG TAB PO PRN (05:26)
[2019-04-24] MEDS: Aspirin 325 mg Enteric Coated Tablet PO SCH (08:59)
[2019-04-24] MEDS ORDERED: Saccharomyces boulardii 250 MG CAP PO SCH (09:00)
[2019-04-24] MEDS ORDERED: Amlodipine 5 MG TAB PO SCH (09:00)
[2019-04-24] MEDS: Propranolol 10 MG TAB PO SCH ×2 (09:01→14:31)
[2019-04-24] MEDS: Enoxaparin Sodium 40 MG/0.4 ML SYRINGE SC SCH (09:04)
[2019-04-24] MEDS: cefTRIAXone\\ROCEPHIN 1 GM in Sodium Chloride 0.9% 100 ML IVPB SCH (11:21)
[2019-04-24 15:22] VITALS: BP 134/68; TEMP 98.4
--- NOTE | 2019-04-24 20:41 | DIS ---
DATE OF ADMISSION: 04/21/2019 DATE OF DISCHARGE: 04/24/2019 DISCHARGE DISPOSITION: To inpatient rehabilitation. The patient was seen and examined on the day of discharge. She denies any new complaints. No new focal deficits. INPATIENT CONSULTANTS: Neurology, Dr. Chung. FOLLOWUP: The patient was advised to follow up with the primary care physician, Dr. Sean Quintana. The patient was advised to follow up with Neurology, Dr. Brower in 2 weeks. ALLERGIES: NO KNOWN DRUG ALLERGIES. DISCHARGE MEDICATION: 1. Aspirin 325 mg daily. 2. Lipitor 10 mg at bedtime. 3. Clonidine as needed. 4. Senokot S as needed. 5. Omeprazole 20 mg daily as needed. 6. Isradipine 5 mg b.i.d. 7. Vascepa 1 g daily. 8. Vitamin D3 at 2000 units at bedtime. BRIEF HOSPITAL COURSE: The patient is an 83-year-old female with hypertension, who presented to the hospital on April 21, 2019, with right-sided weakness and confusion. Workup was consistent with acute large left posterior cerebral artery infarction. She has been started on aspirin by Neurology. Please note that the patient was not on any antiplatelet agent on admission. She was evaluated by Neurology. Echocardiogram showed left ventricular ejection fraction of 55% to 60% with diastolic dysfunction, mild mitral and aortic regurgitation with mild aortic stenosis. A CT angiogram of the head and neck showed long segment occlusion of the left P2 segment with reconstitution at P4. There was atheromatous plaque at the origin of the right internal carotid artery causing moderate stenosis. There was no focal high-grade stenosis noted. She has been cleared by Neurology for discharge. FINAL DIAGNOSES: 1. Acute large left posterior cerebral artery infarction causing right-sided hemiparesis and right homonymous hemianopsia. 2. Occlusion of the left P2 segment with reconstitution at P4. 3. Moderate stenosis in the right internal carotid artery. Primary care physician advised to follow. 4. Hypertension with hypertensive heart disease. 5. Chronic diastolic heart failure. 6. Depression, mild, stable. 7. Anxiety. 8. Recent urinary tract infection, completed antibiotic. 9. Hyperlipidemia. 10. Elevated troponin secondary to acute cerebrovascular accident/type 2 myocardial infarction. 11. Obesity with a BMI of 30.1. 12. Chronic kidney disease, stage 2. The patient was extensively counseled to follow up with Neurology as an outpatient. Total time coordinating was 34 minutes. Job ID: [id number]
== END 2019-04-24 16:50 | DRG 64 ==
LOC: ERS 14:33 → 2SE 15:47
PROVIDERS: ADMIT Internal Medicine; ATTEND Internal Medicine
DX: I63.542 Cerebral infarction due to unspecified occlusion or stenosis of left cerebellar artery (principal); I21.A1 Myocardial infarction type 2; G81.91 Hemiplegia, unspecified affecting right dominant side; N39.0 Urinary tract infection, site not specified; I13.0 Hypertensive heart and chronic kidney disease with heart failure and stage 1 through stage 4 chronic kidney disease, or unspecified chronic kidney disease; I50.32 Chronic diastolic (congestive) heart failure; E78.5 Hyperlipidemia, unspecified; K21.9 Gastro-esophageal reflux disease without esophagitis; R29.701 NIHSS score 1; H53.461 Homonymous bilateral field defects, right side; N18.2 Chronic kidney disease, stage 2 (mild); F41.9 Anxiety disorder, unspecified; F32.9 Major depressive disorder, single episode, unspecified; I65.21 Occlusion and stenosis of right carotid artery; E66.9 Obesity, unspecified; Z79.899 Other long term (current) drug therapy; Z68.30 Body mass index [BMI] 30.0-30.9, adult
CPT/HCPCS: 36415; 36416; 70450; 70496; 70498; 70551; 80053; 80061; 81001; 81003; 81015; 82550; 82553; 84443; 84484; 85025; 85610; 85730; 86850; 86900; 86901; 87040; 87086; 93005; 93306; 93880; 94760; 96360; 96374; J0360; J0696; J1650; J2405; J3490; Q9966

== ENCOUNTER 2019-06-03 15:27 | Observation (INO) | payer MEDICARE, BC ==
--- NOTE | 2019-06-03 17:23 | RAD ---
RADIOGRAPH CHEST 1 VIEW: DATE: 06/03/2019 HISTORY: 83-year-old female with chest pain FINDINGS: The thoracic aorta is tortuous and ectatic. There is no evidence of airspace density, cardiomegaly, p ulmonary edema, or pneumothorax. The lateral costophrenic angles are not effaced. IMPRESSION: 1) No acute cardiopulmonary findings. 2) ectasia of thoracic aorta.
[2019-06-03 17:42] LABS: Bilirubin Negative (Negative); Blood, Urine Negative (Negative); Clarity Clear (Clear); Glucose, Urine (Dipstick) Normal (Negative); Leukocyte 250 Leu/uL (Negative); Nitrite Negative (Negative); Protein, Urine (Dipstick) Negative (Neg-Trace); RBC/HPF 0-3 HPF (0-3); Squamous Epithelial 0-3 HPF (0-3); Urobilinogen Normal mg/dL (Less than 2)
[2019-06-03 17:43] LABS: Bacteria/HPF 1+ HPF (None Seen)
[2019-06-03 17:46] LABS: #Eosinphils 0.5 thou/uL (0.0-0.7); #Lymphocytes 2.7 thou/uL (1.20-3.40); #Neutrophils 7.6 thou/uL (1.40-6.50); %Basophils 0.4 % (0.0-1.0); %Eosinophils 4.5 % (0.0-10.0); %Lymphocytes 22.5 % (21.0-51.0); %Monocytes 8.6 % (0.0-10.0); Hemoglobin 16.3 g/dL (12.0-16.0); Mean Corpuscular HGB CONC 34.4 g/dL (32.0-36.0); Mean Corpuscular Volume 87.2 fL (78.0-98.0); Mean Platelet Volume 7.6 fL (7.4-10.4); Platelet Count 353 thou/uL (130-400); RBC Distribution Width 11.8 % (11.5-14.5); Red Blood Cell (RBC) Count 5.44 mill/uL (4.20-5.40); White Blood Cell (WBC) Count 11.8 thou/uL (4.8-10.8)
[2019-06-03 17:52] LABS: INR-International Normal Ratio 0.9; PTT 25.4 SEC (22.9-36.1); Prothrombin Time 12.4 SEC (12.0-14.7)
[2019-06-03 18:08] LABS: ALT (SGPT) 18 U/L (8-55); AST (SGOT) 17 U/L (5-34); Albumin 4.4 g/dL (3.4-4.8); Alkaline Phosphatase 124 U/L (40-150); Anion Gap 16 mmol/L (10-20); BUN (Urea Nitrogen) 18 mg/dL (9.8-20.1); Bilirubin, Total 0.2 mg/dL (0.2-1.2); CK (CPK) 71 U/L (29-168); Calc. Creatinine Clearance 0 mL/min (70-130); Calcium 9.9 mg/dL (7.8-10.44); Carbon Dioxide 25 mmol/L (23-31); Chloride 104 mmol/L (98-107); Estimated GFR-MDRD 51; Globulin 3.4 g/dL (2.4-3.5); Glucose 106 mg/dL (83-110); Potassium 4.5 mmol/L (3.5-5.1); Protein, Total 7.8 g/dL (6.0-8.3); Sodium 140 mmol/L (136-145)
--- NOTE | 2019-06-03 18:37 | CT ---
CT BRAIN WITHOUT CONTRAST: Date: 06/03/19 HISTORY: Right-sided arm numbness and vision changes. COMPARISON: 04/27/19. FINDINGS: An old large left CROSS ROLLER infarction is again seen. An old lacunar infarct is seen in the left thalamus. No evidence of acute infarct, hemorrhage, midline shift, or abnormal extra-axial fluid collections ar e seen. The ventricular size is appropriate and the basilar cisterns are patent. The bony calvarium i s intact. The visualized paranasal sinuses and mastoid air cells are well aerated. IMPRESSION: No CT evidence of acute intracranial process. POS: MZA
[2019-06-03] MEDS ORDERED: Ondansetron PF 4 MG/2 ML Vial IVP PRN (22:32)
[2019-06-03] MEDS ORDERED: Sodium Chloride 0.9% 1,000 ML IV SCH (22:32)
[2019-06-03] MEDS ORDERED: Ondansetron ODT 4 MG TAB SL PRN (22:32)
[2019-06-03] MEDS ORDERED: Acetaminophen 325 MG TAB PO PRN (22:32)
[2019-06-03] MEDS ORDERED: HYDROcodone/Acetaminophen 5/325 mg Tablet PO PRN ×2 (22:32)
[2019-06-04] MEDS ORDERED: Labetalol HCl 100 MG/20 ML VIAL SLOW IVP PRN (00:31)
[2019-06-04] MEDS ORDERED: hydrALAZINE 20 MG/ML VIAL SLOW IVP PRN (00:31)
[2019-06-04] MEDS ORDERED: Aspirin 325 MG TAB PO SCH (00:45)
[2019-06-04 00:48] VITALS: BMI 29.0
[2019-06-04] MEDS ORDERED: cefTRIAXone\\ROCEPHIN 1 GM in Sodium Chloride 0.9% 100 ML IVPB SCH (02:00)
--- NOTE | 2019-06-04 03:01 | HP ---
CHIEF COMPLAINT: Right arm numbness and tingling. 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 The patient has actually been doing quite well up until Tuesday of this week. The patient went to inpatient rehab briefly after her discharge from this facility and was there for 1 week. She gained all of her strength back in her right upper extremity, and has been continuing to work with outpatient physical therapy at her house. She has been able to complete all of her exercises without issue. Several days ago, the patient stated that she started to feel generally unwell. She cannot provide me any other specifics other than to say she did not feel like doing what she had normally been able to do. She denies any dysuria, cough, cold or flu symptoms. No fever or chills. Today, when at lunch with her sisters, she started noticing some tingling and numbness in her right upper extremity. The patient stated that she did not feel as if she should stay at her house alone, and her sisters urged her to come to the emergency department for further workup and treatment. On arrival, her CT scan was negative for any acute intracranial abnormality. At the time of my interview, her paresthesia has resolved. Blood work was significant for a white blood cell count of 11.8, and urinalysis revealed 1+ bacteria, white blood cell and also leukocyte esterase. REVIEW OF SYSTEMS: A 12-point review of systems performed and is negative except that stated above. PAST MEDICAL HISTORY: Hypertension, hyperlipidemia, hypertensive heart disease/chronic diastolic heart failure, mild aortic stenosis, stage 2 chronic kidney disease, gastroesophageal reflux disease, recent CVA as mentioned involving the left posterior cerebral artery which cause right-sided hemiparesis. PAST SURGICAL HISTORY: Hysterectomy and 1 previous back surgery. PSYCHIATRIC HISTORY: Mild anxiety and depression. SOCIAL HISTORY: The patient continues to live independently in [place]. She has a sister who lives close by. She also has a son and his family who live close by. She currently has home health and outpatient physical therapy. She is able to complete her ADLs independently. No smoking history. She denies any alcohol or illicit drug use. ALLERGIES: NO KNOWN DRUG ALLERGIES. HOME MEDICATIONS: 1. Aspirin 325 mg daily. 2. Lipitor 10 mg p.o. at bedtime. 3. Clonidine 0.1 p.r.n. elevated blood pressure. 4. Senokot as needed. 5. Omeprazole 20 mg daily. 6. Isradipine 5 mg p.o. b.i.d. 7. Vascepa 1 g daily. 8. Vitamin D3, 2000 international units daily. PHYSICAL EXAMINATION: VITAL SIGNS: Blood pressure 136/85, pulse 78, respirations 17 and O2 saturation is 98% on room air. GENERAL: The patient is alert, awake, and oriented, resting comfortably in bed, in no acute distress. HEENT: Head is atraumatic and normocephalic. Mucous membranes are moist. NECK: Trachea is midline. No JVD. No carotid bruits. CV: S1 and S2. Regular rate and rhythm. Grade 2/6 aortic stenosis murmur. LUNGS: Regular respiratory rate and pattern. Clear to auscultation bilaterally. ABDOMEN: Soft. Positive bowel sounds. Nontender. EXTREMITIES: No edema. SKIN: Warm and dry. No rashes. NEUROLOGIC: The patient has some right peripheral vision loss, which has been stable from her previous stroke. On my exam, she has equal strength in her upper and lower extremities bilaterally. LABORATORY DATA: White blood cell count 11.8, hemoglobin 16.3, hematocrit 47.5, and platelet count is 353. PT is 12.4, INR is 0.9. Sodium 140, potassium 4.5, chloride 104, BUN 18, creatinine 1.04, AST 17, ALT 18, alkaline phosphatase 124. Troponin negative. Urinalysis positive for leukocyte esterase, wbc and 1+ bacteria. ASSESSMENT: 1. Right arm paresthesia and blurry vision/transient ischemic attack, in the setting of recent CVA in April, (left posterior cerebral artery infarction). 2. Probable urinary tract infection. 3. Mild aortic stenosis. 4. Chronic diastolic heart failure, no acute exacerbation. 5. Hypertension. 6. Hyperlipidemia. 7. History of chronic kidney disease stage 2 with normal creatinine today. 8. Moderate, nonocclusive right internal carotid artery stenosis. PLAN: We will continue the patient's aspirin and statin, and obtain MRI of the brain to assess for any further insult. We will consult Neurology given her convincing symptoms of TIA in the setting of recent stroke. The patient has an elevated white count and has had some generalized weakness, and I will treat empirically for UTI given her positive findings and UA. Culture is pending. We will continue her other home medications once they are reconciled. Physical Therapy consult as well. Further recommendations based on hospital course and findings of noninvasive testing. Job ID: [id number]
[2019-06-04 05:21] LABS: Cardiac Risk 3.2 (Less than 4.5)
[2019-06-04] MEDS ORDERED: Acetaminophen 325 MG TAB PO PRN (08:31)
[2019-06-04] MEDS ORDERED: Lorazepam 2 MG/ML VIAL SLOW IVP SCH (08:45)
[2019-06-04] MEDS ORDERED: Enoxaparin Sodium 40 MG/0.4 ML SYRINGE SC SCH (09:00)
[2019-06-04] MEDS ORDERED: Aspirin 325 mg Enteric Coated Tablet PO SCH (09:00)
[2019-06-04] MEDS ORDERED: Amlodipine 5 MG TAB PO SCH (09:00)
--- NOTE | 2019-06-04 10:24 | MRI ---
Exam: Brain MRI without contrast HISTORY: Stroke. COMPARISON: 04/23/2019 FINDINGS: Calvarial marrow signal intensity: Appropriate T1 signal Gradient echo sequence: No hemorrhage Brain parenchyma: Findings compatible with a chronic infarct involving the left occipital lobe. There is evidence of malacic and gliotic change, along with laminar necrosis. Remainder of the cerebrum demonstrates preservation of cortical uribe-white matter differentiation. Restricted diffusion: Absent restricted diffusion. No acute infarct. Central arterial flow is maintai cristian. White matter signal intensities: T2, FLAIR white matter hyperintensities due to chronic small vessel ischemic changes Sinuses: Adequate aeration of the paranasal sinuses and mastoid air cells. IMPRESSION: 1. Chronic infarct involving the left occipital lobe. There is associated malacic and gliotic change. There is laminar necrosis. 2. No evidence of an acute infarct.
[2019-06-04 15:45] VITALS: BP 134/65; TEMP 98
[2019-06-04] MEDS ORDERED: Atorvastatin Calcium 10 MG TAB PO SCH (21:00)
--- NOTE | 2019-06-05 08:56 | CON ---
DATE OF CONSULTATION: 06/04/2019 CONSULTING PHYSICIAN: Hospitalist Service. IMPRESSION: Probable mild cervical radiculopathy. PLAN: 1. Prednisone 20 mg per day for 10 days. 2. Office followup. HISTORY OF PRESENT ILLNESS: Ms. Moore is an 83-year-old woman, who presented with complaints of some numbness in her hand and tingling down the right arm. She had a feeling of pressure on the right side of the chest and describes it as heavy. She denies any neck pain. Her symptoms have persisted. Her MRI of the brain was unremarkable. She has had recent carotid ultrasound that was clear. Echocardiogram showed a normal ejection fraction of 55% to 60%. She had a CT scan also, which is normal. MRI showed an old left occipital lobe infarct. PAST MEDICAL HISTORY: Hypertension, occipital lobe stroke. ALLERGIES: NONE. SOCIAL HISTORY: No tobacco. FAMILY HISTORY: Noncontributory. REVIEW OF SYSTEMS: Ten system review of systems is otherwise negative. PHYSICAL EXAMINATION: GENERAL: She is a well-nourished elderly lady, in no acute distress. VITAL SIGNS: Have been stable. She is afebrile. EKG shows sinus rhythm. NECK: Supple. EXTREMITIES: No cyanosis or edema. NEUROLOGIC: She is alert and cooperative. Her speech is fluent and clear. Cranial nerves are intact. Motor exam showed good strength in both upper extremities. Sensation is subjectively decreased in the fingertips of the right hand. She could sit at the bedside without any problems. She has normal gait. No abnormal movements are present. SUMMARY: This is an elderly lady, who presented with some right-sided symptoms which do not appear central, it looks that they maybe possibly related to a cervical radiculopathy. I would be happy to follow up with her as an outpatient. Job ID: [id number]
== END 2019-06-04 19:05 | disposition home or self-care (01) ==
LOC: ERS 15:27 → 2SE 18:51
PROVIDERS: ADMIT Internal Medicine; ATTEND Internal Medicine
DX: I69.351 Hemiplegia and hemiparesis following cerebral infarction affecting right dominant side (principal); I13.0 Hypertensive heart and chronic kidney disease with heart failure and stage 1 through stage 4 chronic kidney disease, or unspecified chronic kidney disease; N18.2 Chronic kidney disease, stage 2 (mild); I50.32 Chronic diastolic (congestive) heart failure; I10 Essential (primary) hypertension; I65.21 Occlusion and stenosis of right carotid artery; I35.0 Nonrheumatic aortic (valve) stenosis; K21.9 Gastro-esophageal reflux disease without esophagitis; F41.8 Other specified anxiety disorders; F32.9 Major depressive disorder, single episode, unspecified; R07.89 Other chest pain; Z79.82 Long term (current) use of aspirin; Z79.899 Other long term (current) drug therapy
CPT/HCPCS: 70450; 70551; 71045; 80053; 80061; 82550; 84484; 85025; 85610; 85730; 87086; 96361; 96365; 96375; 97139 ×2; 99285; G0378 ×3; 36415; 81003; 81015; J0696; J1650; J2060; J3490

== ENCOUNTER 2019-07-17 20:25 | Observation (INO) | payer MEDICARE, BC ==
[~2019-07-17 20:25] MED LIST: ISOVUE-370 76%-LOCM 1 ML ONE
--- NOTE | 2019-07-17 20:40 | CT ---
CT BRAIN NONCONTRAST: DATE: 07/17/2019 HISTORY: 83-year-old female with headache, right-sided numbness, and dysarthria. Acute stroke symptoms. Dr. Walter verbally gave this level 1 stroke alert protocol report to Dr. Cronin of the emergency Departm ent at 8:37 PM on 07/17/2019 FINDINGS: There is no evidence of acute intra-axial or extra-axial hemorrhage. There is no midline shift or any other mass effect. There is no extra-axial fluid collection. There is no evidence of obstructive hydrocephalus. Calvarium is intact. There is a moderate to large contiguous region of encephalomalaci a and gliosis in the left occipital lobe extending into the posterior medial temporal lobe. There is no interval change overall since 06/03/2019. IMPRESSION: 1. No acute intracranial findings. 2. Moderate to large old infarction in the left posterior cerebral artery territory.
[2019-07-17 20:51] LABS: #Basophils 0.1 thou/uL (0.0-0.2); #Eosinphils 0.6 thou/uL (0.0-0.7); #Lymphocytes 3.6 thou/uL (1.20-3.40); #Monocytes 0.9 thou/uL (0.11-0.59); #Neutrophils 4.5 thou/uL (1.40-6.50); %Basophils 0.9 % (0.0-1.0); %Eosinophils 5.8 % (0.0-10.0); %Lymphocytes 37.1 % (21.0-51.0); %Monocytes 9.7 % (0.0-10.0); %Neutrophils 46.4 % (42.0-75.0); Hemoglobin 15.7 g/dL (12.0-16.0); Mean Corpuscular HGB CONC 34.7 g/dL (32.0-36.0); Mean Corpuscular Hemoglobin 30.5 pg (27.0-31.0); Mean Corpuscular Volume 87.8 fL (78.0-98.0); Mean Platelet Volume 7.5 fL (7.4-10.4); Platelet Count 303 thou/uL (130-400); RBC Distribution Width 12.1 % (11.5-14.5); Red Blood Cell (RBC) Count 5.16 mill/uL (4.20-5.40); White Blood Cell (WBC) Count 9.6 thou/uL (4.8-10.8)
[2019-07-17 20:58] LABS: INR-International Normal Ratio 0.9; Prothrombin Time 12.6 SEC (12.0-14.7)
[2019-07-17 21:00] LABS: PTT 21.6 SEC (22.9-36.1)
--- NOTE | 2019-07-17 21:10 | CT ---
CT ANGIOGRAM NECK WITH CONTRAST CT ANGIOGRAM BRAIN WITH CONTRAST: DATE: 07/17/2019 HISTORY: 83-year-old female with acute stroke symptoms: Dysarthria and right-sided numbness. This Level One stroke alert protocol report was called to Dr. Cronin at 9:07 PM on 07/17/2019 TECHNIQUE: After IV contrast injection, arterial bolus chasing technique scan performed from AP window to vertex of head. Coronal and sagittal 3-D MIP reconstructions. FINDINGS: Aortic arch: No dissection or aneurysm. Brachiocephalic: No high-grade stenosis. Right subclavian: No high-grade stenosis. Left subclavian: Mild stenosis with calcified plaque at origin. No high-grade stenosis. Right common carotid: No high-grade stenosis. Left common carotid: No high-grade stenosis. Right vertebral: No high-grade stenosis in cervical or intracranial portions. Left vertebral: There is a transversely oriented thin web across the proximal aspect of the vessel ve ry close to the origin. It is uncertain what degree of stenosis this causes, probably not severe. No other significant stenosis. Mild stenosis at origin. Left side is dominant. Right internal carotid: Calcified plaque at origin causing approximately 40-50% stenosis. No other si gnificant stenosis. Left internal carotid: Calcified plaque at origin causing very mild stenosis. No stenosis in the rest of the vessel. No evidence of high-grade stenosis in bilateral carotid siphons. Bilateral MCAs: No high-grade stenosis or thrombus in M1 segments.. Bilateral ACAs: No occlusion or high-grade stenosis in A1 and A2 segments. Basilar: Normal Bilateral transcribing operators supervisor: No occlusion or high-grade stenosis proximally. IMPRESSION: 1. No evidence of M1 segment middle cerebral artery thrombus. 2. Mild to moderate stenosis at origin of right internal carotid artery by calcified plaque. 3. No other high-grade stenosis identified.
[2019-07-17 21:11] LABS: ALT (SGPT) 14 U/L (8-55); AST (SGOT) 15 U/L (5-34); Albumin 3.9 g/dL (3.4-4.8); Alkaline Phosphatase 99 U/L (40-110); Anion Gap 15 mmol/L (10-20); BUN (Urea Nitrogen) 18 mg/dL (9.8-20.1); Bilirubin, Total 0.2 mg/dL (0.2-1.2); CK (CPK) 83 U/L (29-168); Calc. Creatinine Clearance 0 mL/min (70-130); Calcium 9.5 mg/dL (7.8-10.44); Carbon Dioxide 21 mmol/L (23-31); Chloride 104 mmol/L (98-107); Estimated GFR-MDRD 48; Globulin 3.4 g/dL (2.4-3.5); Glucose 119 mg/dL (83-110); Lipase 54 U/L (8-78); Potassium 4.1 mmol/L (3.5-5.1); Protein, Total 7.3 g/dL (6.0-8.3); Sodium 136 mmol/L (136-145)
[2019-07-17] MEDS ORDERED: Aspirin Chewable 81 MG TAB ONE (21:22)
--- NOTE | 2019-07-17 21:59 | RAD ---
RADIOGRAPH CHEST 1 VIEW: DATE: 07/17/2019 HISTORY: 83-year-old female with altered mental status. FINDINGS: The thoracic aorta is tortuous and ectatic. There is no evidence of airspace density, pulmonary edema , cardiomegaly, or pneumothorax. The lateral costophrenic angles are not effaced. IMPRESSION: 1) No acute pulmonary findings. 2) ectasia of thoracic aorta.
[2019-07-17 23:21] VITALS: BMI 29.9
[2019-07-17] MEDS ORDERED: Ondansetron PF 4 MG/2 ML Vial IVP PRN (23:23)
[2019-07-17] MEDS ORDERED: Ondansetron ODT 4 MG TAB SL PRN (23:23)
[2019-07-18] MEDS ORDERED: Aspirin 325 MG TAB PO SCH (08:00)
[2019-07-18] MEDS ORDERED: ISRADIPINE 5 MG PO SCH (09:00)
--- NOTE | 2019-07-18 09:29 | MRI ---
MRI Brain WO Con: 07/18/2019 7:34 AM CLINICAL HISTORY: TIA. COMPARISON: CT head, previous FINDINGS: Extra axial spaces: Normal in size and morphology for the patient's age. Acute infarction: None. Ventricular system: Normal in size and morphology for the patient's age. Basal cisterns: Normal. Cerebral parenchyma: Microvascular ischemic changes. There is encephalomalacia of the left occipital lobe. Midline shift: None. Cerebellum: Normal. Brainstem: Normal. Paranasal sinuses:Clear IMPRESSION: No acute territorial infarction. Chronic microvascular ischemic disease, and superimposed left occipital encephalomalacia.
[2019-07-18] MEDS: Sodium Chloride 0.9% 1,000 ML IV SCH ×2 (11:00→22:03)
[2019-07-18] MEDS ORDERED: Lisinopril 5 MG TAB PO SCH (11:30)
--- NOTE | 2019-07-18 12:04 | MRI ---
MRI CERVICAL SPINE WITHOUT CONTRAST: INDICATIONS: Cervical radiculopathy. FINDINGS: Motion artifact degrades all sequences. There are moderate degenerative changes at all levels. Degenerative disk changes are noted with loss of disk space, posterior spondylosis and anterior osteophytes at all levels. Vertebral body height is maintained and vertebral body signal is normally maintained. At C2-C3 no significant abnormality. At C3-C4 posterior disk bulge and spondylosis is prominent. These changes impinge on and compress the cord. Evidence of bilateral foraminal stenosis from facet and uncinate hypertrophy. At C4-C5 posterior disk bulge and spondylosis abuts the anterior cord. Evidence of bilateral foramina l narrowing due to facet and uncinate hypertrophy. At C5-C6 posterior disk bulge and spondylosis impinges on and mildly compresses the anterior cord. Ev idence of bilateral foraminal narrowing due to uncinate hypertrophy. At C6-C7 disk bulge and spondylosis abut the anterior cord. Small disk osteophyte complex paracentral ly on the right indents the anterior cord anteriorly on the right. Foraminal narrowing due to facet a nd uncinate hypertrophy. At C7-T1 no significant disk bulge or spondylosis. Foramina appear patent. IMPRESSION: Degenerative disk changes at all levels. Posterior disk and spondylitic changes impinge on the cord a t C3-C4, C4-C5, C5-C6 and C6-C7, as described above. There is foraminal narrowing at all levels due t o facet and uncinate hypertrophy. CT may be of benefit to further evaluate. CT could better define the osseous spondylosis and hypertro phy and reduce motion artifact. POS: OFF
[2019-07-18] MEDS: ALPRAZolam 0.25 MG TAB PO PRN (17:39)
[2019-07-19] MEDS: ISRADIPINE 5 MG PO SCH (01:59)
--- NOTE | 2019-07-19 07:25 | HP ---
PRIMARY CARE PHYSICIAN: Dr. Sean Quintana. CHIEF COMPLAINT: Right arm numbness and tingling. HISTORY OF PRESENT ILLNESS: Ms. Moore is an 83-year-old female, with a past medical history of hypertension, hyperlipidemia, recent CVA in April 2019, who had presented to the ED late last night for what she thought was worsening numbness and tingling down her right arm, she was recently admitted in the hospital back in May of 2019 for the same symptoms. She was seen by Dr. Brower and was later diagnosed with a pinched nerve and sent home with oral prednisone, which she had not tolerated well. She states that she had seen Dr. Brower as outpatient, in which had also stated that her symptoms were from a pinched nerve in her neck. PT and OT were set up along with home care, which she states during that time over the following 20 days, she states that the symptoms gradually improved and is being active. However, over the last week and a half, she has not been as active. Therefore, the symptoms had returned. She had denied any fever, chills, any headache, blurred vision or dizziness, any chest pain, palpitations, shortness of breath, abdominal pain, nausea, or vomiting. During her initial workup in the ED, a CT of brain was obtained and showed no acute intracranial findings; however, moderate to large old infarction to the left posterior cerebral artery territory was noted, CTA of head and neck was also obtained and found posterior spondylitic changes, produced central canal stenosis of C3-C4, C4-C5, C5-C6, and C6-C7. Cord compression was most pronounced in C5-C6 with moderate cord compression of C4-C5 and C3-C4. There was no evidence of M1 segment middle cerebral artery thrombus with [id number] stenosis in origin of right internal carotid artery with no other high-grade stenosis identified. Her portable chest x-ray was also found to be unremarkable. REVIEW OF SYSTEMS: All other systems reviewed and found to be negative unless mentioned in HPI. PAST MEDICAL HISTORY: Hypertension, hyperlipidemia, gastroesophageal reflux disease, previous history of CVA. PAST SURGICAL HISTORY: Hysterectomy and back surgery. PSYCHIATRIC HISTORY: Includes depression. SOCIAL HISTORY: Denies alcohol, tobacco, or illicit drug use. KNOWN ALLERGIES: No known drug allergies. CURRENT HOME MEDICATIONS: 1. Aspirin 325 mg oral daily. 2. Atorvastatin 10 mg oral at bedtime. 3. Clonidine 0.1 mg p.r.n. elevated blood pressure. 4. Senokot as needed. 5. Omeprazole 20 mg oral daily. 6. Isradipine 5 mg p.o. b.i.d. 7. Vascepa 1 g daily. 8. Vitamin D3, 2000 units daily. PHYSICAL EXAMINATION: VITAL SIGNS: BP 146/79, pulse 52, respirations 16, temperature 98.5, and O2 saturation 95% on room air. GENERAL: The patient is awake, alert, and oriented x3. She is currently lying comfortably in bed and in no acute distress. Her son is at bedside. HEENT: Atraumatic and normocephalic. Pupils are round and reactive to light. Extraocular muscles intact. Moist mucous membranes noted. CARDIOVASCULAR: Positive S1 and S2. Regular rate and rhythm. She did have a grade 2 systolic murmur. LUNGS: Clear to auscultation bilaterally. No wheezes, rales, or rhonchi. ABDOMEN: Soft, nontender. Bowel sounds present. EXTREMITIES: Moves all extremities equal. No edema noted. SKIN: Warm, dry, and intact. No rashes. No ulceration noted. NEUROLOGIC: Cranial nerves 2 through 12 grossly intact. No focal deficits noted. Speech intact and normal. Gait not assessed. PSYCHIATRIC: Good mood and affect. LABORATORY DATA: WBC 9.6, RBC 5.16, hemoglobin 15.7, platelets 303. Sodium 136, potassium 4.1, anion gap 15, BUN 18, creatinine 1.10, estimated GFR 48, glucose 119. Troponin 0.019. BNP 27.8. Lipase 54. DIAGNOSTIC IMAGING: CT brain without contrast showed no acute intracranial findings, however, did show moderate to large old infarction to the left posterior cerebral artery territory. CTA head and neck revealed posterior spondylitic changes, produced central canal stenosis of C3-C4, C4-C5, C6 and C7. Cord compression is most pronounced at C5 and C6 with moderate cord compression at C4-C5, C3-C4 with no evidence of M1 segment middle cerebral artery thrombosis, with [id number] stenosis at origin of right internal carotid artery with no other high-grade stenosis identified. Portable chest x-ray showed no acute pulmonary findings. ASSESSMENT AND PLAN: 1. Cervical spinal stenosis. We will check an MRI of cervical spine and consult Neurosurgery for further evaluation and management of her symptoms. We will also order PT and OT. 2. History of cerebrovascular accident. Continue home regimen including aspirin and statin at this time. 3. History of hypertension, currently stable. Check orthostatic vital signs. The patient has been slightly bradycardic. Therefore, we will hold her home dose of Toprol 50 mg and change to lisinopril and monitor her blood pressure and other vital signs closely. 4. Hyperlipidemia. Continue home statin and check lipid panel. 5. Gastroesophageal reflux disease. Continue on PPI. 6. Deep venous thrombosis and gastrointestinal prophylaxis. 7. Code status, full code. 8. Surrogate decision maker is her sonBasil. DISPOSITION: Pending further workup and clinical findings. Job ID: [id number]
[2019-07-19] MEDS ORDERED: ISRADIPINE 5 MG PO SCH (09:00)
[2019-07-19] MEDS ORDERED: Lisinopril 5 MG TAB PO SCH (09:00)
[2019-07-19] MEDS: Sodium Chloride 0.9% 1,000 ML IV SCH (10:51)
--- NOTE | 2019-07-19 11:08 | PRG ---
DATE OF SERVICE: 07/19/2019 This is a 30-minute initial visit note, in which 30 minutes was spent reviewing the imaging record, evaluation, examination of the patient, and formulation of plan. Greater than 50% time was spent in counseling on Yun Moore. SUBJECTIVE: Ms. Moore is a very pleasant 83-year-old woman. She has a history of a left occipital infarct that is chronic. She was admitted with concern of generalized weakness, but also itching has been a major issue in the right chest. A brain MRI was done, which demonstrates no evidence of acute stroke and findings of prior stroke, and finally, cervical spine MRI was done, which demonstrates chronic stenosis and spondylitic changes. OBJECTIVE: On exam, she is alert and appropriate. She has full strength in her upper and lower extremity myotomes. IMPRESSION AND PLAN: There is plan for a transfer to inpatient rehab, and I have let the patient know I would like her to get through this acute. I will arrange for a followup in our clinic, so that we can go over her cervical spine imaging. At this point, I would not recommend any neurosurgical intervention. I would be fine with blood thinners as deemed appropriate by our medical colleagues. DIAGNOSIS: Cervical stenosis. Job ID: [id number]
[2019-07-19 15:55] VITALS: BP 142/77; TEMP 98.7
[2019-07-19] MEDS ORDERED: Acetaminophen 325 MG TAB PO PRN (16:05)
[2019-07-19] MEDS ORDERED: Calcium Carbonate 500 MG ChewTAB PO PRN (16:05)
[2019-07-19] MEDS ORDERED: Ondansetron ODT 4 MG TAB PO PRN (16:05)
[2019-07-19] MEDS ORDERED: Ondansetron PF 4 MG/2 ML Vial IVP PRN (16:05)
[2019-07-19] MEDS: ALPRAZolam 0.25 MG TAB PO PRN (16:13)
--- NOTE | 2019-07-19 19:39 | DIS ---
DATE OF ADMISSION: 07/17/2019 DATE OF DISCHARGE: 07/19/2019 DISCHARGE DISPOSITION: Inpatient rehabilitation. FOLLOWUP: 1. Follow up with primary care physician, Dr. Sean Quintana, in 1 week. 2. Follow up with Neurosurgery, Dr. Corby Curiel, in 2 weeks. 3. Follow up with Neurology as scheduled. The patient was seen and examined on the day of discharge. Denies any new complaints. DISCHARGE MEDICATIONS: Same as admission medication. BRIEF HOSPITAL COURSE: The patient is an 83-year-old female with history of CVA in April of this year, presented to the hospital with right arm numbness and tingling. Please refer to the history and physical for further details. The patient was monitored in the stroke unit. She underwent MRI of the brain that was negative for acute CVA. It showed chronic microvascular ischemic changes and superimposed left occipital encephalomalacia. She underwent a cervical spine MRI that showed degenerative disk changes at all levels along with spinal cord impingement at C3-C4, C4-C5, C5-C6 and C6-C7. There was also foraminal narrowing at all levels due to facet and uncinate hypertrophy. The patient was evaluated by Neurosurgery, Dr. Curiel. Dr. Curiel recommended transfer to inpatient rehabilitation. The patient will follow up with Dr. Curiel as outpatient. FINAL DIAGNOSES: 1. Right arm paresthesias secondary to cervical spine stenosis. 2. History of left posterior cerebral artery cerebrovascular accident in April of this year, on aspirin. 3. Moderate stenosis of the right internal carotid artery. 4. Occlusion of the left P2 segment with reconstitution at P4. 5. Hypertension with hypertensive heart disease. 6. Chronic diastolic heart failure. 7. Anxiety. 8. Depression, mild, stable. 9. Hyperlipidemia. 10. Chronic kidney disease, stage 2. Plan of care was discussed with the patient and the family in detail. They stated understanding. Job ID: [id number]
[2019-07-19] MEDS ORDERED: Atorvastatin Calcium 10 MG TAB PO SCH (21:00)
[2019-07-20] MEDS ORDERED: Fluticasone Propionate Nasal Spray 16 gm Bottle NASAL SCH (09:00)
[2019-07-20] MEDS ORDERED: Multivit, Therapeutic 1 TAB PO SCH (09:00)
[2019-07-20] MEDS ORDERED: Loratadine 10 MG TAB PO SCH (09:00)
[2019-07-20] MEDS ORDERED: Aspirin 325 mg Enteric Coated Tablet PO SCH (09:00)
[2019-07-20] MEDS ORDERED: Enoxaparin Sodium 40 MG/0.4 ML SYRINGE SC SCH (09:00)
--- NOTE | 2019-07-20 15:22 | EKG ---
Test Reason : Blood Pressure : / mmHG Vent. Rate : 061 BPM Atrial Rate : 061 BPM P-R Int : 174 ms QRS Dur : 080 ms QT Int : 414 ms P-R-T Axes : 000 -20 144 degrees QTc Int : 416 ms Normal sinus rhythm T wave abnormality, consider lateral ischemia Abnormal ECG Confirmed by ABILIO MCKENNA, RENUKA ([id number]), web editor JONATHAN SCOTT ([id number]) on 07/20/2019 3:22:12 PM Referred By: Confirmed By:RENUKA KNOX MD
--- NOTE | 2019-07-25 08:54 | CON ---
DATE OF CONSULTATION: ADDITIONAL DICTATED FOR PHYSICIAN: Corby Curiel MD This is a 50-minute initial patient consult in which greater than 50% of the exam was spent in counseling and coordinating the patient's care. Remainder of the exam was spent in review of patient's medical records and review of imaging studies. CHIEF COMPLAINT: Right upper extremity paresthesias. HISTORY OF PRESENT ILLNESS: Ms. Moore is a pleasant 83-year-old female whom we are consulted on for the above complaints. Ms. 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 She presents today reporting right upper extremity numbness and tingling that has been going on in recent months that has been worsening in severity, involves the entire right upper extremity and no left-sided symptoms. No recent falls or imbalance. No weakness in her upper extremities. The patient states that she did undergo inpatient rehabilitation and has done really well in that regard. Over the past 1 to 2 days, she has noticed worsening of her right arm paresthesias in a nondermatomal distribution. She, however, does admit that it is intermittent. She denies any fine motor difficulties, any balance difficulties or falls. She does use a walker occasionally when she is in public, but otherwise is stable on her feet and does not require this at home. Over the past few months, she has noticed some difficulty with right hand fine motor incoordination. She denies any weakness into the legs. She has been on 325 mg aspirin again for history of a previous left-sided occipital stroke, which according to the patient occurred roughly 2-3 months ago. Review of the patient's brain MRI shows no indication of new stroke, but stable old ischemic occipital region stroke with surrounding encephalomalacia. There does not appear to be any new hemorrhage. Review of patient's cervical spine MRI is rather limited in evaluation secondary to motion artifact as the patient is moving. 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 There does not appear to be ralph T2 cord signal abnormality to indicate significant central spinal cord compression. PHYSICAL EXAMINATION: The patient is awake, alert, and appropriate. Her GCS is 15. She follows commands equally in all 4 extremities and appears to have very good strength throughout. She has intact sensation to light touch throughout and Azeb's is negative bilaterally. Pupils are equal, round, and reactive bilaterally and she has no tenderness to palpation of the cervical spine and does not appear to have any decreased range of motion of cervical spine. IMPRESSION DIAGNOSES: 1. Chronic right arm paresthesias with C3 through C7 spondylosis and cervical stenosis. 2. History of old left occipital stroke on 325 mg aspirin. PLAN: At this time, I have discussed the patient's case and imaging with Dr. Curiel. The patient does not require any type of emergent neurosurgical intervention as it appears that her paresthesias have been chronic and her cervical spondylosis and stenosis are chronic. The patient also notes that she does not want to have any type of neurosurgery on her spine. Given all these factors, there is no role for acute neurosurgical intervention and we will follow up with the patient in the office in the next few weeks to evaluate her MRI and we will order cervical spine x-rays. Please call with any changes in patient's neurologic status, otherwise Neurosurgery will sign off. This is a 50-minute initial patient consult in which greater than 50% of the exam was spent in counseling and coordinating the patient's care. Remainder of the exam was spent in review of the patient's medical records and review of imaging studies Job ID: [id number]
== END 2019-07-19 18:31 ==
LOC: ERS 20:25 → 2SE 21:18
PROVIDERS: ADMIT Internal Medicine; ATTEND Internal Medicine
DX: M48.02 Spinal stenosis, cervical region (principal); M47.22 Other spondylosis with radiculopathy, cervical region; M50.11 Cervical disc disorder with radiculopathy, high cervical region; I65.21 Occlusion and stenosis of right carotid artery; E78.5 Hyperlipidemia, unspecified; K21.9 Gastro-esophageal reflux disease without esophagitis; F32.9 Major depressive disorder, single episode, unspecified; I13.0 Hypertensive heart and chronic kidney disease with heart failure and stage 1 through stage 4 chronic kidney disease, or unspecified chronic kidney disease; N18.2 Chronic kidney disease, stage 2 (mild); I50.32 Chronic diastolic (congestive) heart failure; F41.9 Anxiety disorder, unspecified; Z86.73 Personal history of transient ischemic attack (TIA), and cerebral infarction without residual deficits; Z79.82 Long term (current) use of aspirin; Z79.899 Other long term (current) drug therapy
CPT/HCPCS: 36416; 70450; 70496; 70498; 70551; 71045; 72141; 80053; 82550; 83690; 83880; 84484; 85025; 85610; 85730; 93005; 96360; 96361; G0378; Q9966

== ENCOUNTER 2019-08-21 13:51 | Outpatient (CLI) | payer MEDICARE, BC ==
--- NOTE | 2019-08-21 14:31 | RAD ---
EXAM: Cervical spine 4 views HISTORY: Right arm paresthesia numbness and tingling right arm COMPARISON: None FINDINGS: C7-T1 are partially obscured on the lateral view. No evidence for acute fracture or dislocation involving the visualized spine. 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 No prevertebral soft tissue swelling. No abnormal translation between flexion and extension. No evidence for malalignment. No evidence for a bone lesion. IMPRESSION: Spondylosis. No significant acute process.
== END 2019-08-21 13:52 | disposition home or self-care (01) ==
LOC: BICRAD 13:51
PROVIDERS: ATTEND Surgery
DX: R20.2 Paresthesia of skin (principal); M47.812 Spondylosis without myelopathy or radiculopathy, cervical region
CPT/HCPCS: 72050

== ENCOUNTER 2021-12-15 11:06 | Outpatient (CLI) | payer MEDICARE, BC | END 2021-12-15 11:07 | disposition home or self-care (01) | LOC: BICMAMMO 11:06 | PROVIDERS: ATTEND Family Medicine | DX: Z12.31 Encounter for screening mammogram for malignant neoplasm of breast (principal); Z80.3 Family history of malignant neoplasm of breast | CPT/HCPCS: 77063; 77067 ==

== ENCOUNTER 2023-02-15 08:31 | Outpatient (CLI) | payer MEDICARE, BC | END 2023-02-15 08:32 | disposition home or self-care (01) | LOC: NM 08:31 | PROVIDERS: ATTEND Psychiatry & Neurology Neurology | DX: R25.9 Unspecified abnormal involuntary movements (principal) | CPT/HCPCS: 78803; A9584 ×2 ==